=== PATIENT | male | born 1960 | race Caucasian/White ===

== ENCOUNTER 2021-08-26 15:38 | Inpatient (IN) | payer MEDICARE, MEDICAID ==
[~2021-08-26] VITALS: Ht 177.8 cm; Wt 94.7 kg
[2021-08-26 16:25] LABS: Basophils # (auto) 0 10 ^3/uL (0-0.2); Basophils % (auto) 0.4 % (0.0-2.0); Eosinophils # (auto) 0 10 ^3/uL (0-0.8); Eosinophils % (auto) 0.1 % (0.0-7.0); Hematocrit 39.2 % (41.0-53.0); Hemoglobin 13.3 g/dL (13.5-17.5); Lymphocytes # (auto) 0.8 10 ^3/uL (0.4-5.4); Lymphocytes % (auto) 6.1 % (10.0-50.0); Mean Corpuscular Hemoglobin 33.4 pg (28.0-32.0); Mean Corpuscular Volume 98.2 fL (80.0-100.0); Monocytes # (auto) 1.4 10 ^3/uL (0-1.3); Monocytes % (auto) 11.1 % (0.0-12.0); Neutrophils # (auto) 10.6 10 ^3/uL (1.6-8.6); Neutrophils % (auto) 82.3 % (37.0-80.0); Red Blood Cells 3.99 10^6/uL (4.5-5.90); Red Cell Distribution Width 15.3 % (11.8-14.3); White Blood Cell 12.9 10^3/uL (4.4-10.8)
[2021-08-26 16:44] LABS: Albumin 2.4 g/dL (3.4-5.0); Potassium 3.1 mmol/L (3.5-5.1)
[2021-08-26 16:47] LABS: BUN/Creatinine Ratio 8.1; Bilirubin, Total 0.9 mg/dL (0.2-1.0); Total Protein 6.8 g/dL (6.4-8.2)
[2021-08-26] MEDS ORDERED: SODIUM CHLORIDE 0.9% 500 ML IV ONE (18:00)
[2021-08-26] MEDS ORDERED: methylPREDNISolone SOD SUCC 125 MG/2 ML VL IV ONE (18:00)
[2021-08-26] MEDS ORDERED: POTASSIUM CHL 20MEQ/100ML 100 ML IV ONE (18:15)
[2021-08-26] MEDS ORDERED: hydrALAZINE HCL 20 MG/ML VL IV PRN (18:30)
[2021-08-26] MEDS ORDERED: MORPHINE SULFATE INJECTION 2 MG/ML SYRG IV PRN (18:30)
[2021-08-26] MEDS ORDERED: ONDANSETRON HCL 4 MG/2 ML VIAL IV PRN (18:30)
[2021-08-26] MEDS ORDERED: NITROGLYCERIN 0.4 MG SL TAB SL PRN (18:30)
[2021-08-26] MEDS ORDERED: ACETAMINOPHEN 325 MG TAB PO PRN (18:45)
[2021-08-26] MEDS: BUDESONIDE (INHALATION) 0.5 MG/2 ML NEB NEB SCH (19:25)
[2021-08-26] MEDS: chlordiazePOXIDE HCL 25 MG CAP PO SCH (20:32)
[2021-08-26 20:53] LABS: BUN/Creatinine Ratio 8.4; Calcium 6.6 mg/dL (8.5-10.1); Potassium 3.3 mmol/L (3.5-5.1)
[2021-08-26 21:44] VITALS: BP 117/60
[2021-08-27 00:30] VITALS: BP 102/62
[2021-08-27] MEDS: PANTOPRAZOLE 40 MG/10 ML VIAL INJ IV SCH ×3 (00:47→21:31)
[2021-08-27] MEDS: PIPERACILLIN-TAZOB 2.25GM 50 ML IV SCH ×4 (00:48→21:31)
[2021-08-27] MEDS: LORazepam 0.5 MG TAB PO PRN (02:22)
[2021-08-27 05:00] VITALS: BP 128/61
[2021-08-27 05:46] LABS: Basophils # (auto) 0 10 ^3/uL (0-0.2); Eosinophils # (auto) 0 10 ^3/uL (0-0.8); Hematocrit 36.3 % (41.0-53.0); Hemoglobin 12.6 g/dL (13.5-17.5); Lymphocytes # (auto) 0.3 10 ^3/uL (0.4-5.4); Lymphocytes % (auto) 4.1 % (10.0-50.0); Mean Corpuscular Hemoglobin 34.2 pg (28.0-32.0); Mean Corpuscular Hgb Conc. 34.7 g/dL (32.0-36.0); Mean Corpuscular Volume 98.7 fL (80.0-100.0); Monocytes # (auto) 0.2 10 ^3/uL (0-1.3); Monocytes % (auto) 2.5 % (0.0-12.0); Neutrophils # (auto) 7.9 10 ^3/uL (1.6-8.6); Neutrophils % (auto) 93.4 % (37.0-80.0); Red Blood Cells 3.68 10^6/uL (4.5-5.90); Red Cell Distribution Width 15.6 % (11.8-14.3); White Blood Cell 8.5 10^3/uL (4.4-10.8)
[2021-08-27] MEDS: chlordiazePOXIDE HCL 25 MG CAP PO SCH ×3 (05:57→21:32)
[2021-08-27 06:04] LABS: INR 1.04 (0.9-1.15)
[2021-08-27 06:16] LABS: Potassium 3.6 mmol/L (3.5-5.1)
[2021-08-27 06:25] LABS: Albumin 2.2 g/dL (3.4-5.0); BUN/Creatinine Ratio 9.8; Bilirubin, Total 0.9 mg/dL (0.2-1.0); Calcium 6.4 mg/dL (8.5-10.1); Total Protein 6.3 g/dL (6.4-8.2)
[2021-08-27 09:00] VITALS: BP 100/47
[2021-08-27] MEDS: FOLIC ACID 1 MG in D5W 5% 50 ML INJ SCH (09:40)
[2021-08-27] MEDS: NICOTINE 7MG/24HR TOPICAL PATCH TD SCH (10:00)
[2021-08-27] MEDS: BUDESONIDE (INHALATION) 0.5 MG/2 ML NEB NEB SCH ×2 (11:52→23:07)
[2021-08-27] MEDS: SUCRALFATE 1 GM/10 ML ORAL SUSP PO SCH ×3 (11:59→21:31)
[2021-08-27] MEDS: SODIUM CHLORIDE 0.9% 1,000 ML IV SCH ×2 (12:30→21:31)
[2021-08-27 13:00] VITALS: BP 97/58
[2021-08-27 16:38] VITALS: BP 99/61
[2021-08-27 22:00] VITALS: BP 91/51
[2021-08-27] MEDS: ALBUTEROL SULF 2.5 MG/0.5ML(0.5%) NEB SOLN NEB PRN (23:08)
[2021-08-27] MEDS: IPRATROPIUM BROM 0.5 MG/2.5ML INH SOL NEB PRN (23:08)
[2021-08-28] MEDS: SODIUM CHLORIDE 0.9% 1,000 ML IV SCH (04:48)
[2021-08-28 05:00] VITALS: BP 92/50
[2021-08-28] MEDS: PIPERACILLIN-TAZOB 2.25GM 50 ML IV SCH ×3 (06:13→22:35)
[2021-08-28] MEDS: SUCRALFATE 1 GM/10 ML ORAL SUSP PO SCH ×4 (06:14→22:35)
[2021-08-28] MEDS: ALBUTEROL SULF 2.5 MG/0.5ML(0.5%) NEB SOLN NEB PRN ×2 (07:01→21:54)
[2021-08-28] MEDS: IPRATROPIUM BROM 0.5 MG/2.5ML INH SOL NEB PRN (07:01)
[2021-08-28] MEDS: BUDESONIDE (INHALATION) 0.5 MG/2 ML NEB NEB SCH ×2 (07:01→21:54)
[2021-08-28 08:17] LABS: Basophils # (auto) 0 10 ^3/uL (0-0.2); Eosinophils # (auto) 0.1 10 ^3/uL (0-0.8); Lymphocytes # (auto) 1.5 10 ^3/uL (0.4-5.4); Lymphocytes % (auto) 17.7 % (10.0-50.0); Monocytes # (auto) 0.8 10 ^3/uL (0-1.3); White Blood Cell 8.4 10^3/uL (4.4-10.8)
[2021-08-28 08:21] LABS: Basophils % (auto) 0.2 % (0.0-2.0); Hematocrit 33.6 % (41.0-53.0); Hemoglobin 11.7 g/dL (13.5-17.5); Mean Corpuscular Hemoglobin 34.9 pg (28.0-32.0); Mean Corpuscular Hgb Conc. 34.8 g/dL (32.0-36.0); Mean Corpuscular Volume 100.4 fL (80.0-100.0); Monocytes % (auto) 9.7 % (0.0-12.0); Neutrophils % (auto) 71.4 % (37.0-80.0); Red Blood Cells 3.34 10^6/uL (4.5-5.90); Red Cell Distribution Width 15.4 % (11.8-14.3)
[2021-08-28 09:00] VITALS: BP 97/53
[2021-08-28] MEDS: chlordiazePOXIDE HCL 25 MG CAP PO SCH ×2 (09:47→22:35)
[2021-08-28] MEDS: PANTOPRAZOLE 40 MG/10 ML VIAL INJ IV SCH ×2 (09:48→22:34)
[2021-08-28] MEDS: THIAMINE 100mg/ml INJ (200mg/2ml VIAL) IV SCH (09:48)
[2021-08-28] MEDS: FOLIC ACID 1 MG in D5W 5% 50 ML INJ SCH (09:49)
[2021-08-28] MEDS: NICOTINE 7MG/24HR TOPICAL PATCH TD SCH (09:51)
[2021-08-28] MEDS: DOPamine 1600MCG/ML D5W 250 ML IV SCH (11:36)
[2021-08-28] MEDS: MIDODRINE HCL 10 MG TAB PO SCH ×2 (11:55→18:39)
[2021-08-28 12:56] VITALS: BP 68/51
[2021-08-28] MEDS: SODIUM BICARBONATE 50ML VIAL 50 ML in SOD CHL 0.45% 1,000 ML IV SCH ×2 (14:32→22:34)
[2021-08-28] MEDS: OCTREOTIDE ACETATE 100 MCG/ML VL SUBCUT SCH ×2 (14:32→22:36)
[2021-08-28 16:22] LABS: Urine Bacteria FEW /hpf (None Seen); Urine Blood 2+ /uL (Negative); Urine WBC 12 /hpf (0 - 3)
[2021-08-28 16:44] LABS: Amphetamine Screen, Urine NEGATIVE (NEGATIVE); Barbiturate Scree,Urine NEGATIVE (NEGATIVE); Benzodiazephine Screen, Urine POSITIVE (NEGATIVE); Cocaine Screen, Urine NEGATIVE (NEGATIVE); Opiate Scree,Urine NEGATIVE (NEGATIVE); Phencyclidine Screen, Urine NEGATIVE (NEGATIVE)
[2021-08-28 16:52] LABS: Cannabinoid Screen, Urine POSITIVE (NEGATIVE)
[2021-08-28 17:00] VITALS: BP 76/46
[2021-08-28 17:00] LABS: Alcohol, Urine < 3.0 mg/dL (0-10)
[2021-08-28 22:00] VITALS: BP 113/48
[2021-08-29 05:00] VITALS: BP 95/60
[2021-08-29] MEDS: MIDODRINE HCL 10 MG TAB PO SCH ×3 (06:25→17:33)
[2021-08-29] MEDS: PIPERACILLIN-TAZOB 2.25GM 50 ML IV SCH ×3 (06:25→22:28)
[2021-08-29] MEDS: SODIUM BICARBONATE 50ML VIAL 50 ML in SOD CHL 0.45% 1,000 ML IV SCH ×3 (06:25→20:24)
[2021-08-29] MEDS: OCTREOTIDE ACETATE 100 MCG/ML VL SUBCUT SCH ×3 (06:26→22:29)
[2021-08-29] MEDS: SUCRALFATE 1 GM/10 ML ORAL SUSP PO SCH ×4 (06:27→22:28)
[2021-08-29 09:00] VITALS: BP 90/56
[2021-08-29] MEDS: DOPamine 1600MCG/ML D5W 250 ML IV SCH (09:45)
[2021-08-29] MEDS: PANTOPRAZOLE 40 MG/10 ML VIAL INJ IV SCH ×2 (10:00→22:27)
[2021-08-29] MEDS: THIAMINE 100mg/ml INJ (200mg/2ml VIAL) IV SCH (10:00)
[2021-08-29] MEDS: chlordiazePOXIDE HCL 25 MG CAP PO SCH (10:00)
[2021-08-29] MEDS: NICOTINE 7MG/24HR TOPICAL PATCH TD SCH (10:01)
[2021-08-29] MEDS: FOLIC ACID 1 MG in D5W 5% 50 ML INJ SCH (10:26)
[2021-08-29 11:23] LABS: Albumin 1.9 g/dL (3.4-5.0); Calcium 6.4 mg/dL (8.5-10.1); Potassium 3.4 mmol/L (3.5-5.1)
[2021-08-29 11:28] LABS: BUN/Creatinine Ratio 10.4; Bilirubin, Total 0.5 mg/dL (0.2-1.0); Total Protein 5.7 g/dL (6.4-8.2)
[2021-08-29] MEDS: CALCIUM ACETATE 667 MG CAP PO SCH ×2 (12:00→17:33)
[2021-08-29 13:11] VITALS: BP 95/53
[2021-08-29] MEDS ORDERED: DOXYCYCLINE 100 MG TAB/CAP PO ONE (13:15)
[2021-08-29] MEDS ORDERED: FUROSEMIDE 100 MG/10ML VIAL IV ONE (19:30)
[2021-08-29 22:04] VITALS: BP 111/52
[2021-08-29] MEDS: DOXYCYCLINE 100 MG TAB/CAP PO SCH (22:28)
[2021-08-29] MEDS: ALBUTEROL SULF 2.5 MG/0.5ML(0.5%) NEB SOLN NEB PRN (23:07)
[2021-08-29] MEDS: IPRATROPIUM BROM 0.5 MG/2.5ML INH SOL NEB PRN (23:07)
[2021-08-29] MEDS: BUDESONIDE (INHALATION) 0.5 MG/2 ML NEB NEB SCH (23:07)
[2021-08-30 03:47] VITALS: BP 111/52
[2021-08-30 04:53] VITALS: BP 129/71
[2021-08-30 05:59] LABS: Basophils # (auto) 0 10 ^3/uL (0-0.2); Basophils % (auto) 0.3 % (0.0-2.0); Eosinophils # (auto) 0.3 10 ^3/uL (0-0.8); Eosinophils % (auto) 4.1 % (0.0-7.0); Lymphocytes # (auto) 0.9 10 ^3/uL (0.4-5.4); Lymphocytes % (auto) 12.9 % (10.0-50.0); Mean Corpuscular Hemoglobin 33.8 pg (28.0-32.0); Mean Corpuscular Hgb Conc. 34.4 g/dL (32.0-36.0); Mean Corpuscular Volume 98.2 fL (80.0-100.0); Monocytes # (auto) 0.7 10 ^3/uL (0-1.3); Monocytes % (auto) 9.1 % (0.0-12.0); Neutrophils # (auto) 5.4 10 ^3/uL (1.6-8.6); Neutrophils % (auto) 73.6 % (37.0-80.0); Red Blood Cells 3.56 10^6/uL (4.5-5.90); Red Cell Distribution Width 15.5 % (11.8-14.3); White Blood Cell 7.3 10^3/uL (4.4-10.8)
[2021-08-30 06:21] LABS: Potassium 3.2 mmol/L (3.5-5.1)
[2021-08-30] MEDS: SODIUM BICARBONATE 50ML VIAL 50 ML in SOD CHL 0.45% 1,000 ML IV SCH ×3 (06:23→23:40)
[2021-08-30 06:25] LABS: BUN/Creatinine Ratio 10.2; Calcium 6.7 mg/dL (8.5-10.1); Magnesium 2.3 mg/dL (1.6-2.6); Phosphorus 5.6 mg/dL (2.5-4.90)
[2021-08-30] MEDS: MIDODRINE HCL 10 MG TAB PO SCH ×3 (06:47→17:56)
[2021-08-30] MEDS: PIPERACILLIN-TAZOB 2.25GM 50 ML IV SCH ×3 (06:47→23:16)
[2021-08-30] MEDS: OCTREOTIDE ACETATE 100 MCG/ML VL SUBCUT SCH ×3 (06:48→22:00)
[2021-08-30] MEDS: SUCRALFATE 1 GM/10 ML ORAL SUSP PO SCH ×4 (06:48→23:15)
[2021-08-30] MEDS ORDERED: chlordiazePOXIDE HCL 25 MG CAP PO SCH (07:00)
[2021-08-30] MEDS: CALCIUM ACETATE 667 MG CAP PO SCH ×3 (08:30→17:56)
[2021-08-30 09:01] VITALS: BP 123/71
[2021-08-30] MEDS ORDERED: FUROSEMIDE 100 MG/10ML VIAL IV SCH (09:30)
[2021-08-30] MEDS: POTASSIUM CHL 20 Meq TABLET PO ONE ×2 (09:30→10:06)
[2021-08-30] MEDS: DOPamine 1600MCG/ML D5W 250 ML IV SCH (09:45)
[2021-08-30] MEDS: DOXYCYCLINE 100 MG TAB/CAP PO SCH ×2 (10:01→23:16)
[2021-08-30] MEDS: THIAMINE 100mg/ml INJ (200mg/2ml VIAL) IV SCH (10:01)
[2021-08-30] MEDS: FOLIC ACID 1 MG in D5W 5% 50 ML INJ SCH (10:01)
[2021-08-30] MEDS: PANTOPRAZOLE 40 MG/10 ML VIAL INJ IV SCH ×2 (10:01→23:16)
[2021-08-30] MEDS: NICOTINE 7MG/24HR TOPICAL PATCH TD SCH (10:02)
[2021-08-30] MEDS: IPRATROPIUM BROM 0.5 MG/2.5ML INH SOL NEB PRN (11:44)
[2021-08-30] MEDS: BUDESONIDE (INHALATION) 0.5 MG/2 ML NEB NEB SCH (11:44)
[2021-08-30] MEDS: ALBUTEROL SULF 2.5 MG/0.5ML(0.5%) NEB SOLN NEB PRN (11:44)
[2021-08-30] MEDS: MORPHINE SULFATE INJECTION 2 MG/ML SYRG IV PRN ×2 (11:58→23:23)
[2021-08-30] MEDS: FUROSEMIDE 100 MG/10ML VIAL IV SCH ×2 (12:33→23:24)
[2021-08-30 13:00] VITALS: BP 118/68
[2021-08-30 17:00] VITALS: BP 120/59
[2021-08-30 22:00] VITALS: BP 115/74
[2021-08-30] MEDS: LORazepam 0.5 MG TAB PO PRN (23:23)
[2021-08-31] VITALS (7 sets, daily range): BP systolic 126–152; BP diastolic 65–86
[2021-08-31] MEDS: ALBUTEROL SULF 2.5 MG/0.5ML(0.5%) NEB SOLN NEB PRN ×2 (01:08→18:16)
[2021-08-31] MEDS: BUDESONIDE (INHALATION) 0.5 MG/2 ML NEB NEB SCH ×3 (01:08→18:16)
[2021-08-31] MEDS: IPRATROPIUM BROM 0.5 MG/2.5ML INH SOL NEB PRN (01:08)
[2021-08-31] MEDS: OCTREOTIDE ACETATE 100 MCG/ML VL SUBCUT SCH ×3 (05:25→21:31)
[2021-08-31] MEDS: PIPERACILLIN-TAZOB 2.25GM 50 ML IV SCH ×3 (05:25→21:30)
[2021-08-31] MEDS: SUCRALFATE 1 GM/10 ML ORAL SUSP PO SCH ×4 (05:25→21:30)
[2021-08-31] MEDS: MORPHINE SULFATE INJECTION 2 MG/ML SYRG IV PRN ×3 (05:26→21:32)
[2021-08-31] MEDS: MIDODRINE HCL 10 MG TAB PO SCH ×3 (05:26→17:35)
[2021-08-31 06:25] LABS: BUN/Creatinine Ratio 9.8; Calcium 7.6 mg/dL (8.5-10.1); Potassium 3.3 mmol/L (3.5-5.1)
[2021-08-31 08:06] LABS: Immunoglobulin G, Serum 604 mg/dL (603-1613)
[2021-08-31] MEDS: CALCIUM ACETATE 667 MG CAP PO SCH ×3 (08:21→17:35)
[2021-08-31] MEDS: DOPamine 1600MCG/ML D5W 250 ML IV SCH ×2 (09:45→21:33)
[2021-08-31] MEDS: DOXYCYCLINE 100 MG TAB/CAP PO SCH ×2 (10:30→21:30)
[2021-08-31] MEDS: FOLIC ACID 1 MG in D5W 5% 50 ML INJ SCH (10:30)
[2021-08-31] MEDS: PANTOPRAZOLE 40 MG/10 ML VIAL INJ IV SCH ×2 (10:30→21:29)
[2021-08-31] MEDS: THIAMINE 100mg/ml INJ (200mg/2ml VIAL) IV SCH (10:30)
[2021-08-31] MEDS: NICOTINE 7MG/24HR TOPICAL PATCH TD SCH (10:30)
[2021-08-31] MEDS: SPIRONOLACTONE 25 MG TAB PO SCH ×2 (11:44→17:35)
[2021-08-31] MEDS: FUROSEMIDE 100 MG/10ML VIAL IV SCH (13:00)
[2021-08-31] MEDS: SODIUM BICARBONATE 50ML VIAL 50 ML in SOD CHL 0.45% 1,000 ML IV SCH ×2 (13:54→16:30)
[2021-09-01] VITALS (7 sets, daily range): BP systolic 131–163; BP diastolic 64–84
[2021-09-01] MEDS: FUROSEMIDE 100 MG/10ML VIAL IV SCH ×2 (00:01→12:14)
[2021-09-01] MEDS ORDERED: SODIUM BICARBONATE 8.4 % INJ 50ML VIAL IV ONE (01:22)
[2021-09-01] MEDS: SODIUM BICARBONATE 50ML VIAL 50 ML in SOD CHL 0.45% 1,000 ML IV SCH (01:31)
[2021-09-01] MEDS: LORazepam 0.5 MG TAB PO PRN ×2 (01:35→23:35)
[2021-09-01] MEDS: MIDODRINE HCL 10 MG TAB PO SCH ×3 (05:47→17:39)
[2021-09-01] MEDS: SPIRONOLACTONE 25 MG TAB PO SCH ×2 (05:47→17:38)
[2021-09-01] MEDS: PIPERACILLIN-TAZOB 2.25GM 50 ML IV SCH ×3 (05:47→22:00)
[2021-09-01 05:51] LABS: Basophils # (auto) 0 10 ^3/uL (0-0.2); Basophils % (auto) 0.5 % (0.0-2.0); Eosinophils # (auto) 0.3 10 ^3/uL (0-0.8); Lymphocytes # (auto) 0.7 10 ^3/uL (0.4-5.4); Lymphocytes % (auto) 9.3 % (10.0-50.0); Neutrophils # (auto) 5.3 10 ^3/uL (1.6-8.6)
[2021-09-01 05:54] LABS: Hematocrit 37.5 % (41.0-53.0); Hemoglobin 13.1 g/dL (13.5-17.5); Mean Corpuscular Hemoglobin 34.3 pg (28.0-32.0); Mean Corpuscular Hgb Conc. 34.8 g/dL (32.0-36.0); Mean Corpuscular Volume 98.7 fL (80.0-100.0); Monocytes # (auto) 0.9 10 ^3/uL (0-1.3); Monocytes % (auto) 11.9 % (0.0-12.0); Neutrophils % (auto) 74.3 % (37.0-80.0); Red Cell Distribution Width 15.2 % (11.8-14.3); White Blood Cell 7.2 10^3/uL (4.4-10.8)
[2021-09-01] MEDS: MORPHINE SULFATE INJECTION 2 MG/ML SYRG IV PRN ×4 (06:07→22:40)
[2021-09-01 06:17] LABS: BUN/Creatinine Ratio 10.2; Calcium 8.1 mg/dL (8.5-10.1); Potassium 3.5 mmol/L (3.5-5.1)
[2021-09-01] MEDS: DIPHENOXYLATE W/ATROPINE 2.5 MG TAB PO PRN (06:23)
[2021-09-01] MEDS: ALBUTEROL SULF 2.5 MG/0.5ML(0.5%) NEB SOLN NEB PRN ×2 (06:27→19:11)
[2021-09-01] MEDS: BUDESONIDE (INHALATION) 0.5 MG/2 ML NEB NEB SCH ×2 (06:29→19:11)
[2021-09-01] MEDS: SUCRALFATE 1 GM/10 ML ORAL SUSP PO SCH ×4 (07:06→22:00)
[2021-09-01] MEDS: OCTREOTIDE ACETATE 100 MCG/ML VL SUBCUT SCH ×3 (07:15→22:00)
[2021-09-01] MEDS: CALCIUM ACETATE 667 MG CAP PO SCH ×3 (07:53→17:38)
[2021-09-01] MEDS: THIAMINE 100mg/ml INJ (200mg/2ml VIAL) IV SCH (10:07)
[2021-09-01] MEDS: DOXYCYCLINE 100 MG TAB/CAP PO SCH ×2 (10:08→22:00)
[2021-09-01] MEDS: PANTOPRAZOLE 40 MG/10 ML VIAL INJ IV SCH ×2 (10:08→22:00)
[2021-09-01] MEDS: NICOTINE 7MG/24HR TOPICAL PATCH TD SCH (10:09)
[2021-09-01] MEDS: FOLIC ACID 1 MG in D5W 5% 50 ML INJ SCH (11:28)
[2021-09-01] MEDS: FUROSEMIDE INJECTION 100 MG in SODIUM CHL 0.9% 100 ML IV SCH ×2 (14:24→18:50)
[2021-09-01] MEDS: SODIUM BICARBONATE 50ML VIAL 75 ML in SOD CHL 0.45% 1,000 ML IV SCH ×2 (16:02→21:28)
[2021-09-01] MEDS: IPRATROPIUM BROM 0.5 MG/2.5ML INH SOL NEB PRN (19:11)
[2021-09-02] MEDS: FUROSEMIDE INJECTION 100 MG in SODIUM CHL 0.9% 100 ML IV SCH ×6 (01:31→23:00)
[2021-09-02] MEDS: DIPHENOXYLATE W/ATROPINE 2.5 MG TAB PO PRN (04:47)
[2021-09-02] MEDS: MORPHINE SULFATE INJECTION 2 MG/ML SYRG IV PRN ×4 (04:48→18:43)
[2021-09-02 05:00] VITALS: BP 151/102
[2021-09-02] MEDS: OCTREOTIDE ACETATE 100 MCG/ML VL SUBCUT SCH ×3 (06:00→22:00)
[2021-09-02 06:07] LABS: Basophils # (auto) 0 10 ^3/uL (0-0.2); Basophils % (auto) 0.6 % (0.0-2.0); Hematocrit 38.8 % (41.0-53.0); Hemoglobin 13.2 g/dL (13.5-17.5); Lymphocytes # (auto) 0.6 10 ^3/uL (0.4-5.4); Lymphocytes % (auto) 9.6 % (10.0-50.0); Monocytes # (auto) 0.9 10 ^3/uL (0-1.3)
[2021-09-02 06:10] LABS: Eosinophils # (auto) 0.3 10 ^3/uL (0-0.8); Mean Corpuscular Hemoglobin 34.7 pg (28.0-32.0); Mean Corpuscular Volume 102.1 fL (80.0-100.0); Monocytes % (auto) 13.5 % (0.0-12.0); Neutrophils # (auto) 4.6 10 ^3/uL (1.6-8.6); Neutrophils % (auto) 71.3 % (37.0-80.0); Red Blood Cells 3.79 10^6/uL (4.5-5.90); Red Cell Distribution Width 15.5 % (11.8-14.3); White Blood Cell 6.5 10^3/uL (4.4-10.8)
[2021-09-02 06:24] LABS: Potassium 3.5 mmol/L (3.5-5.1)
[2021-09-02 06:30] LABS: BUN/Creatinine Ratio 9.5; Calcium 8.2 mg/dL (8.5-10.1)
[2021-09-02] MEDS: MIDODRINE HCL 10 MG TAB PO SCH ×3 (06:35→17:58)
[2021-09-02] MEDS: SPIRONOLACTONE 25 MG TAB PO SCH ×2 (06:35→17:58)
[2021-09-02] MEDS: PIPERACILLIN-TAZOB 2.25GM 50 ML IV SCH ×3 (06:35→22:10)
[2021-09-02] MEDS: SUCRALFATE 1 GM/10 ML ORAL SUSP PO SCH ×4 (06:52→22:10)
[2021-09-02] MEDS: SODIUM BICARBONATE 50ML VIAL 75 ML in SOD CHL 0.45% 1,000 ML IV SCH ×2 (06:52→15:22)
[2021-09-02] MEDS: BUDESONIDE (INHALATION) 0.5 MG/2 ML NEB NEB SCH ×2 (07:03→19:15)
[2021-09-02] MEDS: ALBUTEROL SULF 2.5 MG/0.5ML(0.5%) NEB SOLN NEB PRN (07:03)
[2021-09-02] MEDS: IPRATROPIUM BROM 0.5 MG/2.5ML INH SOL NEB PRN (07:03)
[2021-09-02 08:32] LABS: INR 1.03 (0.9-1.15); Partial Thromboplastin Time 35.2 sec (23.6-33.0)
[2021-09-02 09:00] VITALS: BP 142/76
[2021-09-02] MEDS: THIAMINE 100mg/ml INJ (200mg/2ml VIAL) IV SCH (10:00)
[2021-09-02] MEDS: CALCIUM ACETATE 667 MG CAP PO SCH ×3 (10:16→17:58)
[2021-09-02] MEDS: DOPamine 1600MCG/ML D5W 250 ML IV SCH (10:18)
[2021-09-02] MEDS: DOXYCYCLINE 100 MG TAB/CAP PO SCH ×2 (10:21→22:10)
[2021-09-02] MEDS: PANTOPRAZOLE 40 MG/10 ML VIAL INJ IV SCH ×2 (10:21→22:10)
[2021-09-02] MEDS: NICOTINE 7MG/24HR TOPICAL PATCH TD SCH (10:23)
[2021-09-02] MEDS: FOLIC ACID 1 MG in D5W 5% 50 ML INJ SCH (10:26)
[2021-09-02 12:19] LABS: Hepatitis A Ab IgM Negative
[2021-09-02 12:36] VITALS: BP 116/86
[2021-09-02 13:45] LABS: Hepatitis B Core IgM Negative
[2021-09-02 14:10] LABS: Hepatitis C Antibody Negative (Negative)
[2021-09-02 16:23] LABS: BUN/Creatinine Ratio 9.6; Calcium 8.6 mg/dL (8.5-10.1); Potassium 3.4 mmol/L (3.5-5.1)
[2021-09-02 16:34] VITALS: BP 132/74
[2021-09-02 21:59] VITALS: BP 127/78
[2021-09-02] MEDS: LORazepam 0.5 MG TAB PO PRN (22:50)
[2021-09-03] MEDS: SODIUM BICARBONATE 50ML VIAL 75 ML in SOD CHL 0.45% 1,000 ML IV SCH ×3 (00:22→18:11)
[2021-09-03 05:00] VITALS: BP 119/76
[2021-09-03] MEDS: FUROSEMIDE INJECTION 100 MG in SODIUM CHL 0.9% 100 ML IV SCH ×4 (05:15→20:30)
[2021-09-03] MEDS: MORPHINE SULFATE INJECTION 2 MG/ML SYRG IV PRN ×3 (05:28→21:20)
[2021-09-03] MEDS: MIDODRINE HCL 10 MG TAB PO SCH ×3 (06:15→18:00)
[2021-09-03] MEDS: SPIRONOLACTONE 25 MG TAB PO SCH ×2 (06:15→18:00)
[2021-09-03] MEDS: OCTREOTIDE ACETATE 100 MCG/ML VL SUBCUT SCH ×3 (06:15→22:15)
[2021-09-03] MEDS: PIPERACILLIN-TAZOB 2.25GM 50 ML IV SCH ×3 (06:15→22:15)
[2021-09-03 06:29] LABS: Calcium 8.4 mg/dL (8.5-10.1)
[2021-09-03 06:31] LABS: BUN/Creatinine Ratio 9.4
[2021-09-03] MEDS: SUCRALFATE 1 GM/10 ML ORAL SUSP PO SCH ×4 (07:06→22:15)
[2021-09-03] MEDS: ALBUTEROL SULF 2.5 MG/0.5ML(0.5%) NEB SOLN NEB PRN (08:01)
[2021-09-03] MEDS: IPRATROPIUM BROM 0.5 MG/2.5ML INH SOL NEB PRN (08:03)
[2021-09-03] MEDS: BUDESONIDE (INHALATION) 0.5 MG/2 ML NEB NEB SCH ×2 (08:03→21:42)
[2021-09-03] MEDS: CALCIUM ACETATE 667 MG CAP PO SCH ×3 (08:45→18:00)
[2021-09-03 09:00] VITALS: BP 119/65
[2021-09-03] MEDS: DOPamine 1600MCG/ML D5W 250 ML IV SCH (09:45)
[2021-09-03] MEDS: THIAMINE 100mg/ml INJ (200mg/2ml VIAL) IV SCH (10:00)
[2021-09-03] MEDS: NICOTINE 7MG/24HR TOPICAL PATCH TD SCH (10:00)
[2021-09-03] MEDS: DOXYCYCLINE 100 MG TAB/CAP PO SCH ×2 (10:00→22:15)
[2021-09-03] MEDS: PANTOPRAZOLE 40 MG/10 ML VIAL INJ IV SCH ×2 (10:00→22:15)
[2021-09-03] MEDS: FOLIC ACID 1 MG in D5W 5% 50 ML INJ SCH (10:00)
[2021-09-03 13:00] VITALS: BP 124/78
[2021-09-03] MEDS ORDERED: ASPI-498 PO (15:05)
[2021-09-03] MEDS ORDERED: CHOL20002 PO (15:05)
[2021-09-03] MEDS ORDERED: TEMA30CA PO (15:05)
[2021-09-03] MEDS ORDERED: LISI20TA28 PO (15:05)
[2021-09-03] MEDS ORDERED: ROSU1TAB14 PO (15:05)
[2021-09-03] MEDS ORDERED: MULTTAB99 PO (15:06)
[2021-09-03 16:47] VITALS: BP 110/70
[2021-09-03 22:00] VITALS: BP 115/74
[2021-09-03] MEDS: LORazepam 0.5 MG TAB PO PRN (22:39)
[2021-09-04] MEDS: FUROSEMIDE INJECTION 100 MG in SODIUM CHL 0.9% 100 ML IV SCH ×5 (01:45→20:41)
[2021-09-04] MEDS: SODIUM BICARBONATE 50ML VIAL 75 ML in SOD CHL 0.45% 1,000 ML IV SCH (02:36)
[2021-09-04 05:00] VITALS: BP 153/74
[2021-09-04 06:00] LABS: BUN/Creatinine Ratio 9.2; Calcium 8.3 mg/dL (8.5-10.1); Potassium 3.1 mmol/L (3.5-5.1)
[2021-09-04] MEDS: PIPERACILLIN-TAZOB 2.25GM 50 ML IV SCH ×3 (06:52→21:54)
[2021-09-04] MEDS: SPIRONOLACTONE 25 MG TAB PO SCH ×2 (06:52→16:42)
[2021-09-04] MEDS: SUCRALFATE 1 GM/10 ML ORAL SUSP PO SCH ×4 (06:53→21:54)
[2021-09-04] MEDS: OCTREOTIDE ACETATE 100 MCG/ML VL SUBCUT SCH ×3 (06:53→21:55)
[2021-09-04] MEDS: MIDODRINE HCL 10 MG TAB PO SCH ×3 (06:53→16:42)
[2021-09-04] MEDS ORDERED: guaiFENesin-DM 100/10mg/5ml SYR PO PRN (07:45)
[2021-09-04] MEDS: CALCIUM ACETATE 667 MG CAP PO SCH ×3 (08:02→16:41)
[2021-09-04] MEDS ORDERED: POTASSIUM CHL 20 Meq TABLET PO ONE (08:30)
[2021-09-04 09:00] VITALS: BP 142/82
[2021-09-04] MEDS: PANTOPRAZOLE 40 MG/10 ML VIAL INJ IV SCH ×2 (09:34→21:54)
[2021-09-04] MEDS: THIAMINE 100mg/ml INJ (200mg/2ml VIAL) IV SCH (09:34)
[2021-09-04] MEDS: DOXYCYCLINE 100 MG TAB/CAP PO SCH ×2 (09:34→21:54)
[2021-09-04] MEDS: NICOTINE 7MG/24HR TOPICAL PATCH TD SCH (09:35)
[2021-09-04 09:37] LABS: Albumin 1.7 g/dL (3.4-5.0); Bilirubin, Direct 0.1 mg/dL (0-0.2)
[2021-09-04 09:39] LABS: Bilirubin, Total 0.4 mg/dL (0.2-1.0); Total Protein 5.8 g/dL (6.4-8.2)
[2021-09-04] MEDS: MORPHINE SULFATE INJECTION 2 MG/ML SYRG IV PRN ×2 (09:40→16:41)
[2021-09-04] MEDS: DOPamine 1600MCG/ML D5W 250 ML IV SCH (09:54)
[2021-09-04] MEDS: OPTISON 3ml Vial for INJ IV ONE ×2 (10:19→15:00)
[2021-09-04] MEDS: FOLIC ACID 1 MG in D5W 5% 50 ML INJ SCH (10:55)
[2021-09-04 13:00] VITALS: BP 102/61
[2021-09-04 16:14] VITALS: BP 123/64
[2021-09-04] MEDS: BUDESONIDE (INHALATION) 0.5 MG/2 ML NEB NEB SCH ×2 (16:18→20:05)
[2021-09-04] MEDS: IPRATROPIUM BROM 0.5 MG/2.5ML INH SOL NEB PRN ×2 (16:18→20:05)
[2021-09-04] MEDS: ALBUTEROL SULF 2.5 MG/0.5ML(0.5%) NEB SOLN NEB PRN ×2 (16:18→20:05)
[2021-09-04] MEDS: LORazepam 0.5 MG TAB PO PRN ×2 (20:05→21:56)
[2021-09-04] MEDS ORDERED: FUROSEMIDE INJECTION 10 ML ONE (20:08)
[2021-09-04 21:00] VITALS: BP 148/76
[2021-09-05 01:33] VITALS: BP 148/76
[2021-09-05] MEDS ORDERED: FUROSEMIDE INJECTION 10 ML ONE (02:49)
[2021-09-05] MEDS: FUROSEMIDE INJECTION 100 MG in SODIUM CHL 0.9% 100 ML IV SCH ×3 (03:05→12:48)
[2021-09-05 05:00] VITALS: BP 121/76
[2021-09-05] MEDS: SPIRONOLACTONE 25 MG TAB PO SCH ×2 (05:34→16:46)
[2021-09-05] MEDS: PIPERACILLIN-TAZOB 2.25GM 50 ML IV SCH ×3 (05:34→21:16)
[2021-09-05] MEDS: MIDODRINE HCL 10 MG TAB PO SCH ×3 (05:35→16:46)
[2021-09-05] MEDS: OCTREOTIDE ACETATE 100 MCG/ML VL SUBCUT SCH ×2 (05:35→12:47)
[2021-09-05] MEDS: MORPHINE SULFATE INJECTION 2 MG/ML SYRG IV PRN ×3 (05:36→18:40)
[2021-09-05] MEDS: BUDESONIDE (INHALATION) 0.5 MG/2 ML NEB NEB SCH ×2 (06:47→19:10)
[2021-09-05] MEDS: ALBUTEROL SULF 2.5 MG/0.5ML(0.5%) NEB SOLN NEB PRN ×2 (06:47→19:10)
[2021-09-05 06:58] LABS: Potassium 3.2 mmol/L (3.5-5.1)
[2021-09-05 07:18] LABS: BUN/Creatinine Ratio 9.3; Calcium 8.9 mg/dL (8.5-10.1)
[2021-09-05] MEDS: CALCIUM ACETATE 667 MG CAP PO SCH ×3 (07:46→16:46)
[2021-09-05] MEDS: SUCRALFATE 1 GM/10 ML ORAL SUSP PO SCH ×4 (07:46→21:16)
[2021-09-05 08:00] VITALS: BP 145/67
[2021-09-05] MEDS: PANTOPRAZOLE 40 MG/10 ML VIAL INJ IV SCH ×2 (10:04→21:15)
[2021-09-05] MEDS: DOXYCYCLINE 100 MG TAB/CAP PO SCH (10:04)
[2021-09-05] MEDS: FOLIC ACID 1 MG in D5W 5% 50 ML INJ SCH (10:05)
[2021-09-05] MEDS: NICOTINE 7MG/24HR TOPICAL PATCH TD SCH (10:05)
[2021-09-05] MEDS: THIAMINE 100mg/ml INJ (200mg/2ml VIAL) IV SCH (10:06)
[2021-09-05] MEDS: DOPamine 1600MCG/ML D5W 250 ML IV SCH (10:06)
[2021-09-05 12:00] VITALS: BP 141/69
[2021-09-05 16:00] VITALS: BP 153/73
[2021-09-05] MEDS: IPRATROPIUM BROM 0.5 MG/2.5ML INH SOL NEB PRN (19:10)
[2021-09-05 22:26] VITALS: BP 119/68
[2021-09-06] MEDS: MORPHINE SULFATE INJECTION 2 MG/ML SYRG IV PRN ×3 (03:10→17:29)
[2021-09-06 05:04] VITALS: BP 99/61
[2021-09-06] MEDS: BUDESONIDE (INHALATION) 0.5 MG/2 ML NEB NEB SCH ×2 (05:59→21:44)
[2021-09-06] MEDS: ALBUTEROL SULF 2.5 MG/0.5ML(0.5%) NEB SOLN NEB PRN ×2 (05:59→21:44)
[2021-09-06] MEDS: IPRATROPIUM BROM 0.5 MG/2.5ML INH SOL NEB PRN ×2 (05:59→21:44)
[2021-09-06] MEDS: SPIRONOLACTONE 25 MG TAB PO SCH ×2 (06:00→17:05)
[2021-09-06] MEDS: PIPERACILLIN-TAZOB 2.25GM 50 ML IV SCH ×3 (06:01→21:45)
[2021-09-06] MEDS: MIDODRINE HCL 10 MG TAB PO SCH ×3 (06:02→17:05)
[2021-09-06] MEDS: SUCRALFATE 1 GM/10 ML ORAL SUSP PO SCH ×4 (06:02→21:45)
[2021-09-06] MEDS: CALCIUM ACETATE 667 MG CAP PO SCH ×3 (07:55→17:05)
[2021-09-06 08:00] VITALS: BP 138/70
[2021-09-06] MEDS: PANTOPRAZOLE 40 MG/10 ML VIAL INJ IV SCH ×2 (08:44→21:44)
[2021-09-06] MEDS: NICOTINE 7MG/24HR TOPICAL PATCH TD SCH (08:44)
[2021-09-06 11:14] LABS: INR 1.11 (0.9-1.15); Partial Thromboplastin Time 38.3 sec (23.6-33.0)
[2021-09-06] MEDS ORDERED: LIDOCAINE 2%HCL (LOCAL ANESTH.) INJ 20ML MDV ONE (11:55)
[2021-09-06] MEDS ORDERED: MIDAZOLAM HCL 2MG/2ML 2ml VIAL (1mg/ml) ONE (12:21)
[2021-09-06] MEDS ORDERED: fentaNYL CITRATE 100 MCG/2 ML VL ONE (12:21)
[2021-09-06] MEDS ORDERED: HEPARIN SODIUM (PORCINE) 5000 UNITS/ML 1ML VIAL ONE (12:21)
[2021-09-06] MEDS ORDERED: levoFLOXacin 500 MG TAB PO ONE (15:30)
[2021-09-06 16:00] VITALS: BP 128/78
[2021-09-06 22:00] VITALS: BP 110/67
[2021-09-06] MEDS: LORazepam 0.5 MG TAB PO PRN (22:20)
[2021-09-07] MEDS: MORPHINE SULFATE INJECTION 2 MG/ML SYRG IV PRN ×2 (03:55→13:53)
[2021-09-07 05:00] VITALS: BP 111/54
[2021-09-07] MEDS: SPIRONOLACTONE 25 MG TAB PO SCH (06:00)
[2021-09-07] MEDS: PIPERACILLIN-TAZOB 2.25GM 50 ML IV SCH ×3 (06:07→21:43)
[2021-09-07] MEDS: MIDODRINE HCL 10 MG TAB PO SCH ×3 (06:07→20:45)
[2021-09-07 06:36] LABS: BUN/Creatinine Ratio 8.6; Calcium 8.6 mg/dL (8.5-10.1)
[2021-09-07] MEDS: SUCRALFATE 1 GM/10 ML ORAL SUSP PO SCH ×4 (07:54→21:43)
[2021-09-07] MEDS: CALCIUM ACETATE 667 MG CAP PO SCH ×3 (07:54→18:00)
[2021-09-07 09:00] VITALS: BP 128/71
[2021-09-07] MEDS ORDERED: POTASSIUM CHL 20 Meq TABLET PO ONE (09:15)
[2021-09-07] MEDS: levoFLOXacin 250 MG TAB PO SCH (09:19)
[2021-09-07] MEDS: PANTOPRAZOLE 40 MG/10 ML VIAL INJ IV SCH ×2 (09:20→21:43)
[2021-09-07] MEDS: NICOTINE 7MG/24HR TOPICAL PATCH TD SCH (09:28)
[2021-09-07] MEDS: BUDESONIDE (INHALATION) 0.5 MG/2 ML NEB NEB SCH ×2 (10:37→21:50)
[2021-09-07] MEDS ORDERED: ALBUMIN 25% 100 ML IV PRN (10:45)
[2021-09-07] MEDS ORDERED: SODIUM CHL 0.9% 1000 ML BAG XX ONE (10:45)
[2021-09-07 13:00] VITALS: BP 107/68
[2021-09-07] MEDS: POTASSIUM CHL 20MEQ/100ML 100 ML IV SCH ×2 (13:53→16:00)
[2021-09-07 17:00] VITALS: BP 122/69
[2021-09-07] MEDS ORDERED: EPOETIN ALFA-EPBX 10,000 UNIT/1ML VIAL SC ONE ×2 (21:00)
[2021-09-07] MEDS: LORazepam 0.5 MG TAB PO PRN (21:44)
[2021-09-07] MEDS: ALBUTEROL SULF 2.5 MG/0.5ML(0.5%) NEB SOLN NEB PRN (21:50)
[2021-09-07] MEDS: IPRATROPIUM BROM 0.5 MG/2.5ML INH SOL NEB PRN (21:50)
[2021-09-07 22:00] VITALS: BP 97/72
[2021-09-08 01:03] VITALS: BP 122/69
[2021-09-08 05:00] VITALS: BP 113/60
[2021-09-08] MEDS: PIPERACILLIN-TAZOB 2.25GM 50 ML IV SCH ×3 (05:11→21:47)
[2021-09-08] MEDS: MIDODRINE HCL 10 MG TAB PO SCH ×3 (05:11→17:11)
[2021-09-08] MEDS: MORPHINE SULFATE INJECTION 2 MG/ML SYRG IV PRN ×3 (05:17→14:31)
[2021-09-08 05:53] LABS: Basophils # (auto) 0.1 10 ^3/uL (0-0.2); Basophils % (auto) 0.6 % (0.0-2.0); Eosinophils # (auto) 0.2 10 ^3/uL (0-0.8); Eosinophils % (auto) 1.5 % (0.0-7.0); Hemoglobin 10.2 g/dL (13.5-17.5); Lymphocytes # (auto) 0.8 10 ^3/uL (0.4-5.4); Mean Corpuscular Hemoglobin 33.1 pg (28.0-32.0); Mean Corpuscular Hgb Conc. 33.8 g/dL (32.0-36.0); Mean Corpuscular Volume 97.9 fL (80.0-100.0); Monocytes # (auto) 0.7 10 ^3/uL (0-1.3); Monocytes % (auto) 5.8 % (0.0-12.0); Neutrophils # (auto) 9.7 10 ^3/uL (1.6-8.6); Neutrophils % (auto) 85.1 % (37.0-80.0); Red Blood Cells 3.07 10^6/uL (4.5-5.90); Red Cell Distribution Width 15.3 % (11.8-14.3); White Blood Cell 11.4 10^3/uL (4.4-10.8)
[2021-09-08 06:14] LABS: Folate (Folic Acid) 6.26 ng/mL (5.38-24)
[2021-09-08] MEDS: SUCRALFATE 1 GM/10 ML ORAL SUSP PO SCH ×4 (07:03→21:47)
[2021-09-08] MEDS: CALCIUM ACETATE 667 MG CAP PO SCH ×3 (08:16→17:11)
[2021-09-08 09:00] VITALS: BP 93/45
[2021-09-08 09:29] LABS: % Iron Saturation 35.6 % (20-55)
[2021-09-08] MEDS: PANTOPRAZOLE 40 MG/10 ML VIAL INJ IV SCH ×2 (09:37→21:46)
[2021-09-08] MEDS: NICOTINE 7MG/24HR TOPICAL PATCH TD SCH (09:41)
[2021-09-08] MEDS: BUDESONIDE (INHALATION) 0.5 MG/2 ML NEB NEB SCH ×2 (10:40→22:50)
[2021-09-08 12:45] VITALS: BP 115/58
[2021-09-08] MEDS: OCTREOTIDE ACETATE 100 MCG/ML VL SUBCUT SCH ×2 (15:22→21:48)
[2021-09-08 16:52] VITALS: BP 123/58
[2021-09-08] MEDS: LORazepam 0.5 MG TAB PO PRN (21:48)
[2021-09-08 22:00] VITALS: BP 116/58
[2021-09-08] MEDS: ALBUTEROL SULF 2.5 MG/0.5ML(0.5%) NEB SOLN NEB PRN (22:50)
[2021-09-09 05:00] VITALS: BP 144/69
[2021-09-09] MEDS: MIDODRINE HCL 10 MG TAB PO SCH ×3 (05:09→18:18)
[2021-09-09] MEDS: PIPERACILLIN-TAZOB 2.25GM 50 ML IV SCH ×3 (05:09→21:37)
[2021-09-09] MEDS: OCTREOTIDE ACETATE 100 MCG/ML VL SUBCUT SCH ×3 (05:10→21:50)
[2021-09-09] MEDS: MORPHINE SULFATE INJECTION 2 MG/ML SYRG IV PRN ×4 (05:30→22:38)
[2021-09-09 05:57] LABS: Hematocrit 31.8 % (41.0-53.0); Hemoglobin 10.7 g/dL (13.5-17.5)
[2021-09-09 06:17] LABS: Calcium 8.6 mg/dL (8.5-10.1); Potassium 3.1 mmol/L (3.5-5.1)
[2021-09-09 06:20] LABS: BUN/Creatinine Ratio 6.9; Bilirubin, Total 0.3 mg/dL (0.2-1.0); Phosphorus 4.1 mg/dL (2.5-4.90); Total Protein 6.5 g/dL (6.4-8.2)
[2021-09-09] MEDS ORDERED: SODIUM CHL 0.9% 1000 ML BAG XX ONE (07:00)
[2021-09-09] MEDS: BUDESONIDE (INHALATION) 0.5 MG/2 ML NEB NEB SCH ×2 (07:42→22:11)
[2021-09-09] MEDS: IPRATROPIUM BROM 0.5 MG/2.5ML INH SOL NEB PRN ×2 (07:42→22:11)
[2021-09-09] MEDS: ALBUTEROL SULF 2.5 MG/0.5ML(0.5%) NEB SOLN NEB PRN ×2 (07:42→22:11)
[2021-09-09] MEDS: CALCIUM ACETATE 667 MG CAP PO SCH ×3 (07:50→18:18)
[2021-09-09] MEDS: SUCRALFATE 1 GM/10 ML ORAL SUSP PO SCH ×4 (08:02→21:36)
[2021-09-09 08:51] VITALS: BP 129/69
[2021-09-09] MEDS: PANTOPRAZOLE 40 MG/10 ML VIAL INJ IV SCH ×2 (09:26→21:37)
[2021-09-09] MEDS: levoFLOXacin 250 MG TAB PO SCH (09:26)
[2021-09-09] MEDS: NICOTINE 7MG/24HR TOPICAL PATCH TD SCH (09:26)
[2021-09-09] MEDS ORDERED: POTASSIUM CHL 20 Meq TABLET PO ONE (12:00)
[2021-09-09 12:52] VITALS: BP 105/66
[2021-09-09 16:49] VITALS: BP 134/66
[2021-09-09] MEDS ORDERED: EPOETIN ALFA-EPBX 10,000 UNIT/1ML VIAL SC ONE (21:00)
[2021-09-09 21:28] VITALS: BP 155/94
[2021-09-09] MEDS: LORazepam 0.5 MG TAB PO PRN (23:25)
[2021-09-10 04:51] VITALS: BP 138/68
[2021-09-10] MEDS: MIDODRINE HCL 10 MG TAB PO SCH ×2 (06:05→11:17)
[2021-09-10] MEDS: PIPERACILLIN-TAZOB 2.25GM 50 ML IV SCH (06:05)
[2021-09-10] MEDS: OCTREOTIDE ACETATE 100 MCG/ML VL SUBCUT SCH (06:06)
[2021-09-10] MEDS: SUCRALFATE 1 GM/10 ML ORAL SUSP PO SCH ×2 (06:09→11:16)
[2021-09-10] MEDS: IPRATROPIUM BROM 0.5 MG/2.5ML INH SOL NEB PRN (07:08)
[2021-09-10] MEDS: ALBUTEROL SULF 2.5 MG/0.5ML(0.5%) NEB SOLN NEB PRN (07:08)
[2021-09-10] MEDS: MORPHINE SULFATE INJECTION 2 MG/ML SYRG IV PRN (07:08)
[2021-09-10] MEDS: BUDESONIDE (INHALATION) 0.5 MG/2 ML NEB NEB SCH (07:08)
[2021-09-10] MEDS: CALCIUM ACETATE 667 MG CAP PO SCH ×2 (08:25→11:17)
[2021-09-10] MEDS: PANTOPRAZOLE 40 MG/10 ML VIAL INJ IV SCH (08:26)
[2021-09-10] MEDS: NICOTINE 7MG/24HR TOPICAL PATCH TD SCH (08:26)
[2021-09-10 08:33] VITALS: BP 147/77
== END 2021-09-10 11:48 | DRG 871 ==
LOC: ER 15:38 → EDBD 15:38 → TELE 18:27 → TELE-WESTW 23:20
PROVIDERS: ADMIT Family Medicine; ATTEND Internal Medicine
PROC: 0JH63XZ Insertion of Tunneled Vascular Access Device into Chest Subcutaneous Tissue and Fascia, Percutaneous Approach (ICD-10-PCS; principal; 2021-09-06)
PROC: 02H633Z Insertion of Infusion Device into Right Atrium, Percutaneous Approach (ICD-10-PCS; 2021-09-06)
PROC: B518ZZA Fluoroscopy of Superior Vena Cava, Guidance (ICD-10-PCS; 2021-09-06)
PROC: B548ZZA Ultrasonography of Superior Vena Cava, Guidance (ICD-10-PCS; 2021-09-06)
DX: A41.9 Sepsis, unspecified organism (principal); J18.9 Pneumonia, unspecified organism; N17.0 Acute kidney failure with tubular necrosis; J96.01 Acute respiratory failure with hypoxia; N18.6 End stage renal disease; J44.1 Chronic obstructive pulmonary disease with (acute) exacerbation; E87.1 Hypo-osmolality and hyponatremia; F10.239 Alcohol dependence with withdrawal, unspecified; F17.213 Nicotine dependence, cigarettes, with withdrawal; E87.2 Acidosis; I12.0 Hypertensive chronic kidney disease with stage 5 chronic kidney disease or end stage renal disease; J98.11 Atelectasis; K92.1 Melena; Z20.822 Contact with and (suspected) exposure to COVID-19; E87.6 Hypokalemia; D64.9 Anemia, unspecified; K57.30 Diverticulosis of large intestine without perforation or abscess without bleeding; Y90.0 Blood alcohol level of less than 20 mg/100 ml; D69.6 Thrombocytopenia, unspecified; F10.229 Alcohol dependence with intoxication, unspecified; F41.9 Anxiety disorder, unspecified; I73.9 Peripheral vascular disease, unspecified; K40.90 Unilateral inguinal hernia, without obstruction or gangrene, not specified as recurrent; K44.9 Diaphragmatic hernia without obstruction or gangrene; K70.30 Alcoholic cirrhosis of liver without ascites; R31.9 Hematuria, unspecified; K80.20 Calculus of gallbladder without cholecystitis without obstruction; Z79.899 Other long term (current) drug therapy; Z82.49 Family history of ischemic heart disease and other diseases of the circulatory system; Z71.6 Tobacco abuse counseling; Z99.2 Dependence on renal dialysis
CPT/HCPCS: 36415; 36558; 71045; 71250; 74176; 76604; 76705; 76775; 76937; 76942; 77001; 80048; 80053; 80074; 80076; 80307; 80320; 81001; 82270; 82306; 82550; 82570; 82607; 82746; 82784; 83036; 83540; 83550; 83615; 83735; 83880; 83970; 84100; 84153; 84156; 84300; 84443; 85014; 85018; 85025; 85045; 85610; 85730; 86334; 86335; 86703; 87040; 87070; 87077; 87186; 87205; 87426; 87493; 90935; 93005; 93306; 94640; 96361; 96374; 97116; 97163; 97530; 99152; 99291; C9113; G0378; J1642; J2250; J2405; J2543; J3480; J7060; Q9956

== ENCOUNTER 2021-10-20 08:42 | Emergency (ER) | payer MEDICARE, MEDICAID ==
[~2021-10-20] VITALS: Ht 175.3 cm; Wt 81.6 kg
[~2021-10-20 08:42] MED LIST: ASPI-498 PO; CHOL20002 PO; LISI20TA28 PO; MULTTAB99 PO; ROSU1TAB14 PO; TEMA30CA PO
[2021-10-20] MEDS ORDERED: SODIUM CHLORIDE 0.9% 1,000 ML IV ONE (12:15)
[2021-10-20 12:53] LABS: Urine Bacteria MANY /hpf (None Seen); Urine Blood TRACE /uL (Negative); Urine Specific Gravity 1.012 (1.001-1.035); Urine WBC 429 /hpf (0 - 3)
[2021-10-20 13:58] LABS: Basophils # (auto) 0.1 10 ^3/uL (0-0.2); Basophils % (auto) 0.4 % (0.0-2.0); Eosinophils # (auto) 0.1 10 ^3/uL (0-0.8); Eosinophils % (auto) 0.4 % (0.0-7.0); Hematocrit 21.9 % (41.0-53.0); Hemoglobin 7.3 g/dL (13.5-17.5); Lymphocytes # (auto) 0.6 10 ^3/uL (0.4-5.4); Lymphocytes % (auto) 4.2 % (10.0-50.0); Mean Corpuscular Hemoglobin 30.3 pg (28.0-32.0); Mean Corpuscular Hgb Conc. 33.2 g/dL (32.0-36.0); Mean Corpuscular Volume 91.4 fL (80.0-100.0); Monocytes % (auto) 6.5 % (0.0-12.0); Neutrophils # (auto) 13.2 10 ^3/uL (1.6-8.6); Neutrophils % (auto) 88.5 % (37.0-80.0); Nucleated Red Blood Cells % 0.1 %; Red Blood Cells 2.39 10^6/uL (4.5-5.90); Red Cell Distribution Width 16.9 % (11.8-14.3); White Blood Cell 14.9 10^3/uL (4.4-10.8)
[2021-10-20 14:17] LABS: Albumin 2.7 g/dL (3.4-5.0); Calcium 8.8 mg/dL (8.5-10.1); Magnesium 2.3 mg/dL (1.6-2.6); Potassium 3.7 mmol/L (3.5-5.1)
[2021-10-20 14:23] LABS: BUN/Creatinine Ratio 16.8; Bilirubin, Total 0.6 mg/dL (0.2-1.0); Total Protein 6.9 g/dL (6.4-8.2)
[2021-10-20 15:23] VITALS: BP 99/42
[2021-10-20] MEDS ORDERED: cefTRIAXone 1GM/50ML D5W 50 ML IV ONE (16:15)
== END 2021-10-20 16:51 ==
LOC: ER 08:42 → EDBD 08:42 → ER 16:51
DX: Z49.01 Encounter for fitting and adjustment of extracorporeal dialysis catheter (principal); N39.0 Urinary tract infection, site not specified; I48.91 Unspecified atrial fibrillation; D64.9 Anemia, unspecified; E46 Unspecified protein-calorie malnutrition; N18.6 End stage renal disease; E78.5 Hyperlipidemia, unspecified; J44.9 Chronic obstructive pulmonary disease, unspecified; F17.210 Nicotine dependence, cigarettes, uncomplicated; Z68.26 Body mass index [BMI] 26.0-26.9, adult; Z79.82 Long term (current) use of aspirin; Z79.899 Other long term (current) drug therapy; Z90.89 Acquired absence of other organs
CPT/HCPCS: 36415; 71045; 80053; 81001; 83735; 83880; 84443; 84484; 85025; 85379; 93005; 96361; 96365; 99285; J0696; J7030

== ENCOUNTER 2022-01-26 07:45 | Inpatient (IN) | payer MEDICARE, MEDICAID ==
[~2022-01-26] VITALS: Ht 172.7 cm; Wt 72.9 kg
[2022-01-26] MEDS ORDERED: LORazepam 2MG/ML-1ML VIAL IV ONE ×4 (10:15→15:45)
[2022-01-26] MEDS ORDERED: SODIUM CHLORIDE 0.9% 500 ML IVB ONE (11:15)
[2022-01-26] MEDS ORDERED: SODIUM CHLORIDE 0.9% 1,000 ML IV ONE (11:15)
[2022-01-26] MEDS ORDERED: HALOPERIDOL LACTATE 5 MG/ML INJ VIAL IV ONE (11:30)
[2022-01-26 11:54] LABS: Basophils # (auto) 0.1 10 ^3/uL (0-0.2); Basophils % (auto) 0.4 % (0.0-2.0); Eosinophils # (auto) 0.5 10 ^3/uL (0-0.8); Eosinophils % (auto) 2.9 % (0.0-7.0); Hematocrit 32.2 % (41.0-53.0); Hemoglobin 11.2 g/dL (13.5-17.5); Lymphocytes # (auto) 2.6 10 ^3/uL (0.4-5.4); Mean Corpuscular Hemoglobin 29.2 pg (28.0-32.0); Mean Corpuscular Hgb Conc. 34.8 g/dL (32.0-36.0); Monocytes # (auto) 0.9 10 ^3/uL (0-1.3); Monocytes % (auto) 5.4 % (0.0-12.0); Neutrophils % (auto) 76.3 % (37.0-80.0); Nucleated Red Blood Cells % 0.1 %; Red Blood Cells 3.83 10^6/uL (4.5-5.90); Red Cell Distribution Width 16.5 % (11.8-14.3); White Blood Cell 17.1 10^3/uL (4.4-10.8)
[2022-01-26 12:01] LABS: Urine Bacteria NONE SEEN /hpf (None Seen); Urine Blood Negative /uL (Negative); Urine Specific Gravity 1.017 (1.001-1.035); Urine WBC 16 /hpf (0 - 3)
[2022-01-26 12:04] LABS: Albumin 3.3 g/dL (3.4-5.0); BUN/Creatinine Ratio 43.4; Calcium 10.2 mg/dL (8.5-10.1); Magnesium 3.1 mg/dL (1.6-2.6)
[2022-01-26 12:07] LABS: Bilirubin, Total 0.5 mg/dL (0.2-1.0); Total Protein 8.7 g/dL (6.4-8.2)
[2022-01-26 12:18] LABS: Alcohol, Urine < 3.0 mg/dL (0-10); Amphetamine Screen, Urine NEGATIVE (NEGATIVE); Barbiturate Scree,Urine NEGATIVE (NEGATIVE); Benzodiazephine Screen, Urine NEGATIVE (NEGATIVE); Cannabinoid Screen, Urine POSITIVE (NEGATIVE); Cocaine Screen, Urine NEGATIVE (NEGATIVE); Phencyclidine Screen, Urine NEGATIVE (NEGATIVE)
[2022-01-26] MEDS ORDERED: HALOPERIDOL LACTATE 5 MG/ML INJ VIAL IM ONE (12:45)
[2022-01-26 12:47] LABS: Opiate Scree,Urine POSITIVE (NEGATIVE)
[2022-01-26] MEDS ORDERED: cefTRIAXone 1GM/50ML D5W 50 ML IV ONE (15:15)
[2022-01-26] MEDS ORDERED: VANCOMYCIN PER PHARMACY 0 MG IV SCH (15:45)
[2022-01-26] MEDS ORDERED: NITROGLYCERIN 0.4 MG SL TAB SL PRN (15:45)
[2022-01-26] MEDS ORDERED: LORazepam 2MG/ML-1ML VIAL IV PRN (15:45)
[2022-01-26] MEDS ORDERED: PIPERACILLIN-TAZOB 3.375GM 100 ML IV ONE (15:45)
[2022-01-26] MEDS ORDERED: FAMO20TA10 PO (20:42)
[2022-01-26] MEDS ORDERED: MORP10CA10 PO (20:42)
[2022-01-26] MEDS ORDERED: LORA0.5T20 PO (20:42)
[2022-01-26] MEDS: VANCOMYCIN 1GM/250ML 250 ML IV SCH (21:40)
[2022-01-26 22:00] VITALS: BP 119/64
[2022-01-26] MEDS: HALOPERIDOL LACTATE 5 MG/ML INJ VIAL IM PRN (22:03)
[2022-01-26] MEDS ORDERED: HYDR-4798 PO (23:08)
[2022-01-26] MEDS ORDERED: THIA100T5 PO (23:08)
[2022-01-26] MEDS ORDERED: FOLI1TAB6 PO (23:08)
[2022-01-26] MEDS ORDERED: ASCO500T11 PO ×2 (23:08)
[2022-01-26] MEDS ORDERED: IPRIH INH (23:08)
[2022-01-26] MEDS ORDERED: PREG75CA PO (23:08)
[2022-01-26] MEDS ORDERED: ROSU20TA14 PO (23:08)
[2022-01-26] MEDS ORDERED: ALBU108A5 IN (23:08)
[2022-01-26] MEDS ORDERED: ACET-1156 PO (23:08)
[2022-01-26] MEDS ORDERED: FURO1TAB33 PO (23:08)
[2022-01-26] MEDS ORDERED: HYDR25TA87 PO (23:08)
[2022-01-26] MEDS ORDERED: MET25T PO (23:08)
[2022-01-26] MEDS: PIPERACILLIN-TAZOB 3.375GM 100 ML IV SCH (23:41)
[2022-01-27] MEDS ORDERED: LORazepam 0.5 MG TAB PO PRN (01:15)
[2022-01-27] MEDS ORDERED: METOCLOPRAMIDE HCL 5MG/ml INJ 2ml VIAL IV PRN (01:15)
[2022-01-27] MEDS ORDERED: hydrALAZINE HCL 20 MG/ML VL IV PRN (01:15)
[2022-01-27] MEDS ORDERED: HYDROcodone-ACET 5/325MG TAB PO ONE (01:15)
[2022-01-27] MEDS ORDERED: MULTIPLE VITAMINS W/ MINERALS TAB PO ONE (01:15)
[2022-01-27] MEDS ORDERED: LACTULOSE 20Gm/30ML SOLN PO PRN (01:15)
[2022-01-27] MEDS ORDERED: IPRATROPIUM BROM 0.5 MG/2.5ML INH SOL NEB ONE (01:15)
[2022-01-27] MEDS ORDERED: FERROUS SULFATE 325mg EC TAB PO ONE (01:15)
[2022-01-27] MEDS ORDERED: DOCUSATE SOD 100 MG CAP PO PRN (01:15)
[2022-01-27] MEDS ORDERED: SUCRALFATE 1 GM/10 ML ORAL SUSP PO ONE (01:15)
[2022-01-27] MEDS ORDERED: PANTOPRAZOLE 40 MG/10 ML VIAL INJ IV ONE (01:15)
[2022-01-27] MEDS ORDERED: BUDESONIDE (INHALATION) 0.5 MG/2 ML NEB NEB ONE (01:15)
[2022-01-27] MEDS ORDERED: THIAMINE 100mg/ml INJ (200mg/2ml VIAL) IV ONE (01:15)
[2022-01-27] MEDS ORDERED: FOLIC ACID 1 MG TAB PO ONE (01:15)
[2022-01-27] MEDS ORDERED: ALBUTEROL SULF 2.5 MG/0.5ML(0.5%) NEB SOLN NEB ONE (01:15)
[2022-01-27] MEDS ORDERED: ZOLEDRONIC ACID 4 MG in SODIUM CHL 0.9% 100 ML IV ONE (01:30)
[2022-01-27] MEDS ORDERED: SODIUM CHLORIDE 0.9% 1,000 ML IV SCH (01:30)
[2022-01-27] MEDS: ALBUTEROL SULF 2.5 MG/0.5ML(0.5%) NEB SOLN NEB PRN ×3 (02:04→22:49)
[2022-01-27] MEDS: IPRATROPIUM BROM 0.5 MG/2.5ML INH SOL NEB SCH ×6 (02:04→22:49)
[2022-01-27 03:22] VITALS: BP 95/65
[2022-01-27 05:00] VITALS: BP 134/75
[2022-01-27 06:07] LABS: RPR Non Reactive (Non Reactive)
[2022-01-27] MEDS: PIPERACILLIN-TAZOB 3.375GM 100 ML IV SCH ×4 (06:30→23:00)
[2022-01-27 07:04] LABS: Basophils # (auto) 0.2 10 ^3/uL (0-0.2); Eosinophils # (auto) 0.1 10 ^3/uL (0-0.8); Eosinophils % (auto) 0.5 % (0.0-7.0); Hematocrit 32.9 % (41.0-53.0); Hemoglobin 11.6 g/dL (13.5-17.5); Lymphocytes # (auto) 1.8 10 ^3/uL (0.4-5.4); Lymphocytes % (auto) 8.9 % (10.0-50.0); Mean Corpuscular Hemoglobin 29.4 pg (28.0-32.0); Mean Corpuscular Hgb Conc. 35.3 g/dL (32.0-36.0); Mean Corpuscular Volume 83.1 fL (80.0-100.0); Monocytes # (auto) 1.1 10 ^3/uL (0-1.3); Monocytes % (auto) 5.7 % (0.0-12.0); Neutrophils # (auto) 16.7 10 ^3/uL (1.6-8.6); Neutrophils % (auto) 83.9 % (37.0-80.0); Red Blood Cells 3.96 10^6/uL (4.5-5.90); Red Cell Distribution Width 16.1 % (11.8-14.3)
[2022-01-27] MEDS: ACETYLCYSTEINE 10 %(100MG/ML) SOL 4ML NEB SCH ×3 (07:17→19:17)
[2022-01-27] MEDS: BUDESONIDE (INHALATION) 0.5 MG/2 ML NEB NEB SCH ×2 (07:18→19:02)
[2022-01-27 07:30] LABS: Potassium 4.5 mmol/L (3.5-5.1)
[2022-01-27 07:51] LABS: INR 1.1 (0.9-1.15); Partial Thromboplastin Time 29.9 sec (23.6-33.0)
[2022-01-27 07:52] LABS: Albumin 3.4 g/dL (3.4-5.0); BUN/Creatinine Ratio 37.1; Bilirubin, Total 0.7 mg/dL (0.2-1.0); CRP High Sensitivity 6.68 mg/dL (< 0.3); Calcium 9.7 mg/dL (8.5-10.1); Magnesium 2.6 mg/dL (1.6-2.6); Phosphorus 3.7 mg/dL (2.5-4.90); Total Protein 9.2 g/dL (6.4-8.2); Uric Acid 6.6 mg/dL (3.5-7.2)
[2022-01-27] MEDS: chlordiazePOXIDE HCL 25 MG CAP PO SCH ×3 (07:56→18:44)
[2022-01-27 09:00] VITALS: BP 130/65
[2022-01-27] MEDS: SUCRALFATE 1 GM/10 ML ORAL SUSP PO SCH ×3 (11:30→21:25)
[2022-01-27] MEDS: FERROUS SULFATE 325mg EC TAB PO SCH ×2 (12:00→18:44)
[2022-01-27] MEDS: PANTOPRAZOLE 40 MG/10 ML VIAL INJ IV SCH (12:08)
[2022-01-27] MEDS: ASPirin 81 mg TAB PO SCH (12:08)
[2022-01-27] MEDS: CYANOCOBALAMIN 500 MCG TAB PO SCH (12:09)
[2022-01-27] MEDS: MULTIPLE VITAMINS W/ MINERALS TAB PO SCH (12:09)
[2022-01-27] MEDS: THIAMINE HCL 100 MG TAB PO SCH (12:09)
[2022-01-27] MEDS: FOLIC ACID 1 MG TAB PO SCH (12:09)
[2022-01-27] MEDS: CHOLECALCIFEROL (VITD3) 2,000 UNIT CAP/TAB PO SCH (12:10)
[2022-01-27] MEDS: HYDROcodone-ACET 5/325MG TAB PO PRN (12:10)
[2022-01-27] MEDS: ENOXAPARIN SOD 40 MG/0.4 ML SYRINGE SC SCH (12:10)
[2022-01-27 13:00] VITALS: BP 140/64
[2022-01-27 17:00] VITALS: BP 96/39
[2022-01-27] MEDS: ATORVASTATIN 20 MG TAB PO SCH (21:25)
[2022-01-27] MEDS: VANCOMYCIN 1GM/250ML 250 ML IV SCH (21:34)
[2022-01-28] VITALS (8 sets, daily range): BP systolic 98–147; BP diastolic 75–85
[2022-01-28] MEDS: IPRATROPIUM BROM 0.5 MG/2.5ML INH SOL NEB SCH ×6 (02:25→22:44)
[2022-01-28] MEDS: ALBUTEROL SULF 2.5 MG/0.5ML(0.5%) NEB SOLN NEB PRN ×2 (02:25→19:37)
[2022-01-28] MEDS: PIPERACILLIN-TAZOB 3.375GM 100 ML IV SCH ×4 (05:03→23:50)
[2022-01-28 05:46] LABS: Basophils # (auto) 0.1 10 ^3/uL (0-0.2); Basophils % (auto) 0.7 % (0.0-2.0); Eosinophils # (auto) 0.1 10 ^3/uL (0-0.8); Eosinophils % (auto) 0.5 % (0.0-7.0); Hematocrit 32.3 % (41.0-53.0); Hemoglobin 11.2 g/dL (13.5-17.5); Lymphocytes # (auto) 2.3 10 ^3/uL (0.4-5.4); Lymphocytes % (auto) 12.4 % (10.0-50.0); Mean Corpuscular Hemoglobin 29.2 pg (28.0-32.0); Mean Corpuscular Hgb Conc. 34.9 g/dL (32.0-36.0); Mean Corpuscular Volume 83.9 fL (80.0-100.0); Monocytes # (auto) 1.2 10 ^3/uL (0-1.3); Monocytes % (auto) 6.3 % (0.0-12.0); Neutrophils # (auto) 14.9 10 ^3/uL (1.6-8.6); Neutrophils % (auto) 80.1 % (37.0-80.0); Red Blood Cells 3.84 10^6/uL (4.5-5.90); Red Cell Distribution Width 16.2 % (11.8-14.3); White Blood Cell 18.6 10^3/uL (4.4-10.8)
[2022-01-28 05:57] LABS: INR 1.16 (0.9-1.15); Partial Thromboplastin Time 31.3 sec (23.6-33.0)
[2022-01-28 06:08] LABS: Albumin 3.3 g/dL (3.4-5.0); BUN/Creatinine Ratio 35.2; Calcium 9.7 mg/dL (8.5-10.1); Potassium 4.3 mmol/L (3.5-5.1)
[2022-01-28 06:09] LABS: Bilirubin, Total 0.6 mg/dL (0.2-1.0); Total Protein 8.7 g/dL (6.4-8.2)
[2022-01-28] MEDS: HYDROcodone-ACET 5/325MG TAB PO PRN (06:21)
[2022-01-28] MEDS: SUCRALFATE 1 GM/10 ML ORAL SUSP PO SCH ×4 (06:21→21:54)
[2022-01-28] MEDS: ACETYLCYSTEINE 10 %(100MG/ML) SOL 4ML NEB SCH ×3 (06:53→19:38)
[2022-01-28] MEDS: BUDESONIDE (INHALATION) 0.5 MG/2 ML NEB NEB SCH ×2 (06:53→22:44)
[2022-01-28] MEDS: FERROUS SULFATE 325mg EC TAB PO SCH ×3 (08:00→18:00)
[2022-01-28] MEDS ORDERED: ANGIOMAX 250 MG VIAL IV ONE ×2 (09:16→10:54)
[2022-01-28] MEDS ORDERED: SODIUM CHL 0.9% 50 ML ONE ×2 (09:17→10:54)
[2022-01-28] MEDS ORDERED: fentaNYL CITRATE 100 MCG/2 ML VL ONE (09:17)
[2022-01-28] MEDS ORDERED: diphenhdrAMINE HCL 50 MG/1 ML VL ONE (09:17)
[2022-01-28] MEDS ORDERED: MIDAZOLAM HCL 2MG/2ML 2ml VIAL (1mg/ml) ONE ×2 (09:17→09:50)
[2022-01-28] MEDS ORDERED: LIDOCAINE 2%HCL (LOCAL ANESTH.) INJ 10ml MDV ONE (09:18)
[2022-01-28] MEDS ORDERED: HEPARIN IN NS 1000Units/500mL 1,500 ML ONE (09:18)
[2022-01-28] MEDS ORDERED: IODIXANOL 320MG/ML 100ML BTL IV ONE ×3 (09:21→11:30)
[2022-01-28] MEDS: ASPirin 81 mg TAB PO SCH (10:00)
[2022-01-28] MEDS: FOLIC ACID 1 MG TAB PO SCH (10:00)
[2022-01-28] MEDS: ENOXAPARIN SOD 40 MG/0.4 ML SYRINGE SC SCH (10:00)
[2022-01-28] MEDS: chlordiazePOXIDE HCL 25 MG CAP PO SCH ×2 (10:00→21:53)
[2022-01-28] MEDS: THIAMINE HCL 100 MG TAB PO SCH (10:00)
[2022-01-28] MEDS: PANTOPRAZOLE 40 MG/10 ML VIAL INJ IV SCH (10:00)
[2022-01-28] MEDS: CYANOCOBALAMIN 500 MCG TAB PO SCH (10:00)
[2022-01-28] MEDS: CHOLECALCIFEROL (VITD3) 2,000 UNIT CAP/TAB PO SCH (10:00)
[2022-01-28] MEDS: MULTIPLE VITAMINS W/ MINERALS TAB PO SCH (10:00)
[2022-01-28] MEDS ORDERED: HYDROmorphone HCL 2 MG/ML VL ONE (10:15)
[2022-01-28] MEDS ORDERED: LORazepam 2MG/ML-1ML VIAL IV ONE (10:45)
[2022-01-28] MEDS ORDERED: IOHEXOL 350 MG/ML 100ML IJ ONE (11:30)
[2022-01-28] MEDS ORDERED: OLANZapine 5 MG TAB PO ONE (12:00)
[2022-01-28] MEDS: HALOPERIDOL LACTATE 5 MG/ML INJ VIAL IM PRN (20:57)
[2022-01-28] MEDS: VANCOMYCIN 1GM/250ML 250 ML IV SCH (20:58)
[2022-01-28] MEDS: ATORVASTATIN 20 MG TAB PO SCH (21:52)
[2022-01-29] MEDS: HYDROcodone-ACET 5/325MG TAB PO PRN (02:40)
[2022-01-29] MEDS: IPRATROPIUM BROM 0.5 MG/2.5ML INH SOL NEB SCH ×4 (02:53→21:45)
[2022-01-29] MEDS: ALBUTEROL SULF 2.5 MG/0.5ML(0.5%) NEB SOLN NEB PRN ×2 (02:53→13:34)
[2022-01-29] MEDS: SUCRALFATE 1 GM/10 ML ORAL SUSP PO SCH ×4 (06:29→22:57)
[2022-01-29 06:37] LABS: Basophils # (auto) 0.1 10 ^3/uL (0-0.2); Basophils % (auto) 0.4 % (0.0-2.0); Eosinophils # (auto) 0.3 10 ^3/uL (0-0.8); Eosinophils % (auto) 1.5 % (0.0-7.0); Hematocrit 28.7 % (41.0-53.0); Hemoglobin 10.2 g/dL (13.5-17.5); Lymphocytes # (auto) 2.1 10 ^3/uL (0.4-5.4); Lymphocytes % (auto) 11.2 % (10.0-50.0); Mean Corpuscular Hemoglobin 29.7 pg (28.0-32.0); Mean Corpuscular Hgb Conc. 35.6 g/dL (32.0-36.0); Mean Corpuscular Volume 83.5 fL (80.0-100.0); Monocytes # (auto) 1.3 10 ^3/uL (0-1.3); Monocytes % (auto) 7.2 % (0.0-12.0); Neutrophils % (auto) 79.7 % (37.0-80.0); Nucleated Red Blood Cells % 0.2 %; Red Blood Cells 3.44 10^6/uL (4.5-5.90); Red Cell Distribution Width 16.1 % (11.8-14.3); White Blood Cell 18.8 10^3/uL (4.4-10.8)
[2022-01-29 06:59] LABS: Calcium 9.1 mg/dL (8.5-10.1); Potassium 3.8 mmol/L (3.5-5.1)
[2022-01-29 07:01] LABS: BUN/Creatinine Ratio 35.7
[2022-01-29 07:19] LABS: Bilirubin, Total 0.8 mg/dL (0.2-1.0)
[2022-01-29 07:40] LABS: Magnesium 2.9 mg/dL (1.6-2.6)
[2022-01-29 07:44] LABS: Phosphorus 5.4 mg/dL (2.5-4.90)
[2022-01-29] MEDS: FERROUS SULFATE 325mg EC TAB PO SCH ×3 (08:00→18:00)
[2022-01-29 08:09] VITALS: BP 108/48
[2022-01-29] MEDS ORDERED: ACYCLOVIR 10MG/KG Q8HR PER RX 0 ML IV SCH (09:30)
[2022-01-29] MEDS: THIAMINE HCL 100 MG TAB PO SCH (10:00)
[2022-01-29] MEDS: FOLIC ACID 1 MG TAB PO SCH (10:00)
[2022-01-29] MEDS: MULTIPLE VITAMINS W/ MINERALS TAB PO SCH (10:00)
[2022-01-29] MEDS: chlordiazePOXIDE HCL 25 MG CAP PO SCH ×2 (10:00→22:57)
[2022-01-29] MEDS: CYANOCOBALAMIN 500 MCG TAB PO SCH (10:00)
[2022-01-29] MEDS: ENOXAPARIN SOD 40 MG/0.4 ML SYRINGE SC SCH (10:00)
[2022-01-29] MEDS: PANTOPRAZOLE 40 MG/10 ML VIAL INJ IV SCH (10:00)
[2022-01-29] MEDS: CHOLECALCIFEROL (VITD3) 2,000 UNIT CAP/TAB PO SCH (10:00)
[2022-01-29] MEDS: ASPirin 81 mg TAB PO SCH (10:00)
[2022-01-29] MEDS: ACYCLOVIR SOD 50MG/ML 700 MG in SODIUM CHL 0.9% 250 ML IV SCH ×2 (11:00→23:07)
[2022-01-29] MEDS: PIPERACILLIN-TAZOB 3.375GM 100 ML IV SCH ×3 (11:00→23:00)
[2022-01-29] MEDS: SODIUM BICARBONATE 50ML VIAL 50 ML in SOD CHL 0.45% 1,000 ML IV SCH ×2 (12:00→22:30)
[2022-01-29 12:46] VITALS: BP 96/61
[2022-01-29] MEDS: BUDESONIDE (INHALATION) 0.5 MG/2 ML NEB NEB SCH ×2 (13:30→21:45)
[2022-01-29 15:40] LABS: Amphetamine Screen, Urine NEGATIVE (NEGATIVE); Barbiturate Scree,Urine NEGATIVE (NEGATIVE); Benzodiazephine Screen, Urine POSITIVE (NEGATIVE); Cannabinoid Screen, Urine NEGATIVE (NEGATIVE); Cocaine Screen, Urine NEGATIVE (NEGATIVE); Opiate Scree,Urine POSITIVE (NEGATIVE)
[2022-01-29 15:47] LABS: Phencyclidine Screen, Urine NEGATIVE (NEGATIVE)
[2022-01-29 15:55] LABS: Creatinine, Urine 154 mg/dL (30.0-125.0); Sodium Urine 14 mmol/L (40-220)
[2022-01-29 16:52] VITALS: BP 117/57
[2022-01-29] MEDS: VANCOMYCIN 1GM/250ML 250 ML IV SCH (20:47)
[2022-01-29 22:00] VITALS: BP 108/73
[2022-01-29] MEDS: ATORVASTATIN 20 MG TAB PO SCH (22:57)
[2022-01-30 01:13] VITALS: BP 105/67
[2022-01-30] MEDS: HYDROcodone-ACET 5/325MG TAB PO PRN (02:27)
[2022-01-30 05:00] VITALS: BP 102/56
[2022-01-30] MEDS: PIPERACILLIN-TAZOB 3.375GM 100 ML IV SCH ×4 (05:13→22:39)
[2022-01-30 05:54] LABS: Basophils # (auto) 0.1 10 ^3/uL (0-0.2); Basophils % (auto) 0.4 % (0.0-2.0); Eosinophils # (auto) 0.5 10 ^3/uL (0-0.8); Eosinophils % (auto) 3.2 % (0.0-7.0); Hematocrit 26.6 % (41.0-53.0); Hemoglobin 9.4 g/dL (13.5-17.5); Lymphocytes # (auto) 1.6 10 ^3/uL (0.4-5.4); Lymphocytes % (auto) 10.5 % (10.0-50.0); Mean Corpuscular Hemoglobin 29.2 pg (28.0-32.0); Mean Corpuscular Hgb Conc. 35.3 g/dL (32.0-36.0); Mean Corpuscular Volume 82.9 fL (80.0-100.0); Monocytes % (auto) 6.7 % (0.0-12.0); Neutrophils # (auto) 12.1 10 ^3/uL (1.6-8.6); Neutrophils % (auto) 79.2 % (37.0-80.0); Red Blood Cells 3.21 10^6/uL (4.5-5.90); White Blood Cell 15.2 10^3/uL (4.4-10.8)
[2022-01-30 06:12] LABS: Calcium 8.4 mg/dL (8.5-10.1); Potassium 3.8 mmol/L (3.5-5.1)
[2022-01-30 06:15] LABS: Albumin 2.6 g/dL (3.4-5.0); BUN/Creatinine Ratio 43.9
[2022-01-30] MEDS ORDERED: LORazepam 2MG/ML-1ML VIAL IV PRN (06:15)
[2022-01-30] MEDS: SUCRALFATE 1 GM/10 ML ORAL SUSP PO SCH ×4 (06:17→21:44)
[2022-01-30] MEDS: BUDESONIDE (INHALATION) 0.5 MG/2 ML NEB NEB SCH ×2 (06:18→21:16)
[2022-01-30] MEDS: IPRATROPIUM BROM 0.5 MG/2.5ML INH SOL NEB SCH ×3 (06:18→21:16)
[2022-01-30 06:19] LABS: Bilirubin, Total 0.6 mg/dL (0.2-1.0); Total Protein 7.1 g/dL (6.4-8.2)
[2022-01-30] MEDS ORDERED: chlordiazePOXIDE HCL 25 MG CAP PO SCH (07:00)
[2022-01-30] MEDS: FERROUS SULFATE 325mg EC TAB PO SCH ×3 (08:00→18:00)
[2022-01-30 08:30] VITALS: BP 110/75
[2022-01-30] MEDS: SODIUM BICARBONATE 50ML VIAL 50 ML in SOD CHL 0.45% 1,000 ML IV SCH (09:00)
[2022-01-30] MEDS: ASPirin 81 mg TAB PO SCH (10:00)
[2022-01-30] MEDS: PANTOPRAZOLE 40 MG/10 ML VIAL INJ IV SCH (10:00)
[2022-01-30] MEDS: FOLIC ACID 1 MG TAB PO SCH (10:00)
[2022-01-30] MEDS: ENOXAPARIN SOD 40 MG/0.4 ML SYRINGE SC SCH (10:00)
[2022-01-30] MEDS: CHOLECALCIFEROL (VITD3) 2,000 UNIT CAP/TAB PO SCH (10:00)
[2022-01-30] MEDS: CYANOCOBALAMIN 500 MCG TAB PO SCH (10:00)
[2022-01-30] MEDS: MULTIPLE VITAMINS W/ MINERALS TAB PO SCH (10:00)
[2022-01-30] MEDS: THIAMINE HCL 100 MG TAB PO SCH (10:00)
[2022-01-30] MEDS: ACYCLOVIR SOD 50MG/ML 700 MG in SODIUM CHL 0.9% 250 ML IV SCH ×2 (11:00→22:40)
[2022-01-30] MEDS: MUPIROCIN 2% OINT 15gm or 22gm EACHNOSTRI SCH ×2 (11:00→21:58)
[2022-01-30 12:30] VITALS: BP 103/52
[2022-01-30] MEDS ORDERED: VANCOMYCIN PER PHARMACY 0 MG IV SCH (12:30)
[2022-01-30 16:33] VITALS: BP 115/55
[2022-01-30 20:00] VITALS: BP 102/59
[2022-01-30] MEDS: ALBUTEROL SULF 2.5 MG/0.5ML(0.5%) NEB SOLN NEB PRN (21:16)
[2022-01-30] MEDS: ATORVASTATIN 20 MG TAB PO SCH (21:44)
[2022-01-31] MEDS: VANCOMYCIN 750mg/250ml 250 ML IV SCH (03:35)
[2022-01-31] MEDS: SODIUM BICARBONATE 50ML VIAL 50 ML in SOD CHL 0.45% 1,000 ML IV SCH ×3 (03:37→18:04)
[2022-01-31] MEDS: PIPERACILLIN-TAZOB 3.375GM 100 ML IV SCH ×4 (04:25→23:23)
[2022-01-31 05:00] VITALS: BP 120/57
[2022-01-31 05:59] LABS: Basophils # (auto) 0.1 10 ^3/uL (0-0.2); Basophils % (auto) 0.6 % (0.0-2.0); Eosinophils # (auto) 0.6 10 ^3/uL (0-0.8); Eosinophils % (auto) 5.2 % (0.0-7.0); Hematocrit 25.2 % (41.0-53.0); Hemoglobin 8.9 g/dL (13.5-17.5); Lymphocytes # (auto) 1.8 10 ^3/uL (0.4-5.4); Lymphocytes % (auto) 14.2 % (10.0-50.0); Mean Corpuscular Hemoglobin 29.3 pg (28.0-32.0); Mean Corpuscular Hgb Conc. 35.3 g/dL (32.0-36.0); Mean Corpuscular Volume 82.9 fL (80.0-100.0); Monocytes # (auto) 0.8 10 ^3/uL (0-1.3); Monocytes % (auto) 6.4 % (0.0-12.0); Neutrophils # (auto) 9.1 10 ^3/uL (1.6-8.6); Neutrophils % (auto) 73.6 % (37.0-80.0); Nucleated Red Blood Cells % 0.1 %; Red Blood Cells 3.05 10^6/uL (4.5-5.90); Red Cell Distribution Width 15.8 % (11.8-14.3); White Blood Cell 12.3 10^3/uL (4.4-10.8)
[2022-01-31 06:00] VITALS: BP 120/57
[2022-01-31] MEDS: SUCRALFATE 1 GM/10 ML ORAL SUSP PO SCH ×4 (06:17→22:23)
[2022-01-31 07:00] VITALS: BP 112/59
[2022-01-31] MEDS: BUDESONIDE (INHALATION) 0.5 MG/2 ML NEB NEB SCH ×2 (07:24→21:31)
[2022-01-31] MEDS: IPRATROPIUM BROM 0.5 MG/2.5ML INH SOL NEB SCH ×3 (07:24→21:31)
[2022-01-31] MEDS: ALBUTEROL SULF 2.5 MG/0.5ML(0.5%) NEB SOLN NEB PRN ×2 (07:24→21:31)
[2022-01-31] MEDS: FERROUS SULFATE 325mg EC TAB PO SCH ×3 (08:00→18:07)
[2022-01-31] MEDS: THIAMINE HCL 100 MG TAB PO SCH (10:00)
[2022-01-31] MEDS: ASPirin 81 mg TAB PO SCH (10:00)
[2022-01-31] MEDS: MULTIPLE VITAMINS W/ MINERALS TAB PO SCH (10:00)
[2022-01-31] MEDS: PANTOPRAZOLE 40 MG/10 ML VIAL INJ IV SCH (10:00)
[2022-01-31] MEDS: CYANOCOBALAMIN 500 MCG TAB PO SCH (10:00)
[2022-01-31] MEDS: FOLIC ACID 1 MG TAB PO SCH (10:00)
[2022-01-31] MEDS: MUPIROCIN 2% OINT 15gm or 22gm EACHNOSTRI SCH ×2 (10:00→22:00)
[2022-01-31] MEDS: CHOLECALCIFEROL (VITD3) 2,000 UNIT CAP/TAB PO SCH (10:00)
[2022-01-31] MEDS ORDERED: LORazepam 2MG/ML-1ML VIAL IV ONE (10:15)
[2022-01-31] MEDS: ENOXAPARIN SOD 40 MG/0.4 ML SYRINGE SC SCH (10:46)
[2022-01-31 12:35] VITALS: BP 150/60
[2022-01-31] MEDS: ACYCLOVIR SOD 50MG/ML 700 MG in SODIUM CHL 0.9% 250 ML IV SCH ×2 (15:11→22:24)
[2022-01-31 16:14] VITALS: BP 112/56
[2022-01-31] MEDS: Juven Fruit Punch Powder PACKET 28.8gm PO SCH (18:13)
[2022-01-31 21:54] VITALS: BP 134/75
[2022-01-31] MEDS: ATORVASTATIN 20 MG TAB PO SCH (22:23)
[2022-02-01] MEDS: SODIUM BICARBONATE 50ML VIAL 50 ML in SOD CHL 0.45% 1,000 ML IV SCH (03:00)
[2022-02-01 03:33] LABS: Basophils # (auto) 0.1 10 ^3/uL (0-0.2); Basophils % (auto) 0.5 % (0.0-2.0); Eosinophils # (auto) 0.5 10 ^3/uL (0-0.8); Eosinophils % (auto) 4.2 % (0.0-7.0); Hematocrit 26.1 % (41.0-53.0); Hemoglobin 9.1 g/dL (13.5-17.5); Lymphocytes # (auto) 1.8 10 ^3/uL (0.4-5.4); Lymphocytes % (auto) 14.5 % (10.0-50.0); Mean Corpuscular Hemoglobin 29.4 pg (28.0-32.0); Mean Corpuscular Hgb Conc. 35.1 g/dL (32.0-36.0); Monocytes # (auto) 0.7 10 ^3/uL (0-1.3); Monocytes % (auto) 5.9 % (0.0-12.0); Neutrophils # (auto) 9.2 10 ^3/uL (1.6-8.6); Neutrophils % (auto) 74.9 % (37.0-80.0); Nucleated Red Blood Cells % 0.1 %; Red Cell Distribution Width 15.6 % (11.8-14.3); White Blood Cell 12.3 10^3/uL (4.4-10.8)
[2022-02-01] MEDS: VANCOMYCIN 750mg/250ml 250 ML IV SCH (03:56)
[2022-02-01 04:48] VITALS: BP 128/64
[2022-02-01] MEDS: PIPERACILLIN-TAZOB 3.375GM 100 ML IV SCH ×4 (05:08→23:00)
[2022-02-01 05:37] LABS: Basophils # (auto) 0.1 10 ^3/uL (0-0.2); Basophils % (auto) 0.7 % (0.0-2.0); Eosinophils # (auto) 0.6 10 ^3/uL (0-0.8); Eosinophils % (auto) 5.1 % (0.0-7.0); Hematocrit 27.2 % (41.0-53.0); Hemoglobin 9.5 g/dL (13.5-17.5); Lymphocytes # (auto) 1.7 10 ^3/uL (0.4-5.4); Lymphocytes % (auto) 14.1 % (10.0-50.0); Mean Corpuscular Hemoglobin 29.1 pg (28.0-32.0); Mean Corpuscular Hgb Conc. 34.9 g/dL (32.0-36.0); Mean Corpuscular Volume 83.4 fL (80.0-100.0); Monocytes # (auto) 0.7 10 ^3/uL (0-1.3); Monocytes % (auto) 5.5 % (0.0-12.0); Neutrophils # (auto) 9.1 10 ^3/uL (1.6-8.6); Neutrophils % (auto) 74.6 % (37.0-80.0); Red Blood Cells 3.25 10^6/uL (4.5-5.90); Red Cell Distribution Width 15.6 % (11.8-14.3); White Blood Cell 12.2 10^3/uL (4.4-10.8)
[2022-02-01 05:51] LABS: Potassium 3.5 mmol/L (3.5-5.1)
[2022-02-01] MEDS: ACYCLOVIR SOD 50MG/ML 700 MG in SODIUM CHL 0.9% 250 ML IV SCH ×3 (05:54→22:09)
[2022-02-01 05:56] LABS: Albumin 2.3 g/dL (3.4-5.0); Bilirubin, Total 0.6 mg/dL (0.2-1.0); Calcium 8.5 mg/dL (8.5-10.1); Total Protein 7.1 g/dL (6.4-8.2)
[2022-02-01] MEDS: ALBUTEROL SULF 2.5 MG/0.5ML(0.5%) NEB SOLN NEB PRN ×2 (06:46→22:23)
[2022-02-01] MEDS: BUDESONIDE (INHALATION) 0.5 MG/2 ML NEB NEB SCH ×2 (06:46→22:23)
[2022-02-01] MEDS: IPRATROPIUM BROM 0.5 MG/2.5ML INH SOL NEB SCH ×3 (06:47→22:23)
[2022-02-01] MEDS: SUCRALFATE 1 GM/10 ML ORAL SUSP PO SCH ×4 (06:57→22:06)
[2022-02-01] MEDS: HYDROcodone-ACET 5/325MG TAB PO PRN ×2 (06:58→17:23)
[2022-02-01 08:49] VITALS: BP 111/61
[2022-02-01] MEDS: PANTOPRAZOLE 40 MG/10 ML VIAL INJ IV SCH (11:05)
[2022-02-01] MEDS: FOLIC ACID 1 MG TAB PO SCH (11:06)
[2022-02-01] MEDS: THIAMINE HCL 100 MG TAB PO SCH (11:06)
[2022-02-01] MEDS: ASPirin 81 mg TAB PO SCH (11:06)
[2022-02-01] MEDS: Juven Fruit Punch Powder PACKET 28.8gm PO SCH ×2 (11:07→17:21)
[2022-02-01] MEDS: MUPIROCIN 2% OINT 15gm or 22gm EACHNOSTRI SCH ×2 (11:07→22:08)
[2022-02-01] MEDS: MULTIPLE VITAMINS W/ MINERALS TAB PO SCH (11:08)
[2022-02-01] MEDS: CYANOCOBALAMIN 500 MCG TAB PO SCH (11:08)
[2022-02-01] MEDS: ENOXAPARIN SOD 40 MG/0.4 ML SYRINGE SC SCH (11:08)
[2022-02-01] MEDS: CHOLECALCIFEROL (VITD3) 2,000 UNIT CAP/TAB PO SCH (11:08)
[2022-02-01] MEDS: FERROUS SULFATE 325mg EC TAB PO SCH ×3 (11:09→17:21)
[2022-02-01 13:00] VITALS: BP 117/75
[2022-02-01] MEDS: MORPHINE SULFATE INJECTION 2 MG/ML SYRG IV PRN ×3 (15:10→22:07)
[2022-02-01 17:00] VITALS: BP 111/61
[2022-02-01 22:03] VITALS: BP 105/67
[2022-02-01] MEDS: ATORVASTATIN 20 MG TAB PO SCH (22:07)
[2022-02-01 23:51] VITALS: BP 105/67
[2022-02-02 02:57] LABS: Basophils # (auto) 0.1 10 ^3/uL (0-0.2); Basophils % (auto) 0.7 % (0.0-2.0); Eosinophils # (auto) 0.7 10 ^3/uL (0-0.8); Eosinophils % (auto) 5.7 % (0.0-7.0); Hematocrit 25.5 % (41.0-53.0); Lymphocytes # (auto) 1.9 10 ^3/uL (0.4-5.4); Lymphocytes % (auto) 15.7 % (10.0-50.0); Mean Corpuscular Hemoglobin 29.4 pg (28.0-32.0); Mean Corpuscular Hgb Conc. 35.2 g/dL (32.0-36.0); Mean Corpuscular Volume 83.6 fL (80.0-100.0); Monocytes # (auto) 0.7 10 ^3/uL (0-1.3); Monocytes % (auto) 5.5 % (0.0-12.0); Neutrophils # (auto) 8.8 10 ^3/uL (1.6-8.6); Neutrophils % (auto) 72.4 % (37.0-80.0); Nucleated Red Blood Cells % 0.2 %; Red Blood Cells 3.05 10^6/uL (4.5-5.90); Red Cell Distribution Width 15.6 % (11.8-14.3); White Blood Cell 12.1 10^3/uL (4.4-10.8)
[2022-02-02 03:46] LABS: BUN/Creatinine Ratio 23.2; Calcium 8.6 mg/dL (8.5-10.1); Potassium 3.6 mmol/L (3.5-5.1)
[2022-02-02] MEDS: VANCOMYCIN 750mg/250ml 250 ML IV SCH (04:12)
[2022-02-02] MEDS: MORPHINE SULFATE INJECTION 2 MG/ML SYRG IV PRN ×2 (04:13→10:29)
[2022-02-02 05:00] VITALS: BP 114/60
[2022-02-02] MEDS: PIPERACILLIN-TAZOB 3.375GM 100 ML IV SCH ×3 (05:03→21:12)
[2022-02-02 05:50] LABS: Basophils # (auto) 0.1 10 ^3/uL (0-0.2); Basophils % (auto) 0.7 % (0.0-2.0); Eosinophils # (auto) 0.6 10 ^3/uL (0-0.8); Eosinophils % (auto) 4.9 % (0.0-7.0); Hematocrit 25.5 % (41.0-53.0); Lymphocytes # (auto) 1.8 10 ^3/uL (0.4-5.4); Lymphocytes % (auto) 15.3 % (10.0-50.0); Mean Corpuscular Hemoglobin 29.4 pg (28.0-32.0); Mean Corpuscular Hgb Conc. 35.5 g/dL (32.0-36.0); Mean Corpuscular Volume 82.8 fL (80.0-100.0); Monocytes # (auto) 0.6 10 ^3/uL (0-1.3); Monocytes % (auto) 5.2 % (0.0-12.0); Neutrophils # (auto) 8.6 10 ^3/uL (1.6-8.6); Neutrophils % (auto) 73.9 % (37.0-80.0); Nucleated Red Blood Cells % 0.1 %; Red Blood Cells 3.07 10^6/uL (4.5-5.90); Red Cell Distribution Width 15.8 % (11.8-14.3); White Blood Cell 11.6 10^3/uL (4.4-10.8)
[2022-02-02 06:11] LABS: Potassium 3.6 mmol/L (3.5-5.1)
[2022-02-02 06:21] LABS: Albumin 2.2 g/dL (3.4-5.0); BUN/Creatinine Ratio 22.5; Bilirubin, Total 0.5 mg/dL (0.2-1.0); Calcium 8.6 mg/dL (8.5-10.1); Total Protein 6.7 g/dL (6.4-8.2)
[2022-02-02] MEDS: IPRATROPIUM BROM 0.5 MG/2.5ML INH SOL NEB SCH ×3 (06:45→23:08)
[2022-02-02] MEDS: BUDESONIDE (INHALATION) 0.5 MG/2 ML NEB NEB SCH ×2 (06:45→23:08)
[2022-02-02] MEDS ORDERED: ROPIVACAINE 0.5% (5MG/ML) 20ML AMPULE IJ ONE (07:10)
[2022-02-02] MEDS ORDERED: ceFAZolin 1GM VL ONE (07:10)
[2022-02-02] MEDS ORDERED: SUCCINYLCHOLINE CHLORIDE 20 MG/ML 10ML VIAL IV ONE (07:12)
[2022-02-02] MEDS ORDERED: fentaNYL CITRATE 100 MCG/2 ML VL ONE (07:13)
[2022-02-02] MEDS ORDERED: MIDAZOLAM HCL 2MG/2ML 2ml VIAL (1mg/ml) ONE (07:13)
[2022-02-02] MEDS ORDERED: ceFAZolin 1GM/50ML 100 ML IV ONE (07:17)
[2022-02-02] MEDS ORDERED: ONDANSETRON HCL 4 MG/2 ML VIAL ONE (08:04)
[2022-02-02] MEDS ORDERED: PROPOFOL 10 MG/ML 20 ML IV ONE (08:04)
[2022-02-02] MEDS ORDERED: DexAMETHasone SOD PHOS 10MG/1ML VIAL INJ ONE (08:04)
[2022-02-02] MEDS ORDERED: fentaNYL CITRATE 100 MCG/2 ML VL IV PRN (08:15)
[2022-02-02] MEDS ORDERED: METOCLOPRAMIDE HCL 5MG/ml INJ 2ml VIAL IV PRN (08:15)
[2022-02-02] MEDS ORDERED: ONDANSETRON HCL 4 MG/2 ML VIAL IV PRN (08:15)
[2022-02-02] MEDS ORDERED: HYDROmorphone HCL 2 MG/ML VL IV PRN (08:15)
[2022-02-02 09:15] VITALS: BP 108/62
[2022-02-02] MEDS: ENOXAPARIN SOD 40 MG/0.4 ML SYRINGE SC SCH (10:00)
[2022-02-02] MEDS: SUCRALFATE 1 GM/10 ML ORAL SUSP PO SCH ×4 (10:23→21:12)
[2022-02-02] MEDS: PANTOPRAZOLE 40 MG/10 ML VIAL INJ IV SCH (10:24)
[2022-02-02] MEDS: FERROUS SULFATE 325mg EC TAB PO SCH ×3 (10:24→17:57)
[2022-02-02] MEDS: ASPirin 81 mg TAB PO SCH (10:24)
[2022-02-02] MEDS: MULTIPLE VITAMINS W/ MINERALS TAB PO SCH (10:25)
[2022-02-02] MEDS: CHOLECALCIFEROL (VITD3) 2,000 UNIT CAP/TAB PO SCH (10:25)
[2022-02-02] MEDS: CYANOCOBALAMIN 500 MCG TAB PO SCH (10:25)
[2022-02-02] MEDS: THIAMINE HCL 100 MG TAB PO SCH (10:25)
[2022-02-02] MEDS: FOLIC ACID 1 MG TAB PO SCH (10:26)
[2022-02-02] MEDS: MUPIROCIN 2% OINT 15gm or 22gm EACHNOSTRI SCH ×2 (10:26→22:00)
[2022-02-02] MEDS: ACYCLOVIR SOD 50MG/ML 700 MG in SODIUM CHL 0.9% 250 ML IV SCH ×2 (10:55→19:18)
[2022-02-02] MEDS: Juven Fruit Punch Powder PACKET 28.8gm PO SCH ×2 (10:56→17:58)
[2022-02-02 12:40] VITALS: BP 101/63
[2022-02-02 16:49] VITALS: BP 129/74
[2022-02-02] MEDS: HYDROcodone-ACET 5/325MG TAB PO PRN (17:58)
[2022-02-02] MEDS: ATORVASTATIN 20 MG TAB PO SCH (21:12)
[2022-02-02 22:00] VITALS: BP 109/61
[2022-02-02] MEDS: ALBUTEROL SULF 2.5 MG/0.5ML(0.5%) NEB SOLN NEB PRN (23:08)
[2022-02-03] MEDS: HYDROcodone-ACET 5/325MG TAB PO PRN ×2 (01:59→15:12)
[2022-02-03] MEDS: PIPERACILLIN-TAZOB 3.375GM 100 ML IV SCH ×4 (01:59→21:19)
[2022-02-03] MEDS: ACYCLOVIR SOD 50MG/ML 700 MG in SODIUM CHL 0.9% 250 ML IV SCH ×4 (02:02→21:01)
[2022-02-03] MEDS: VANCOMYCIN 750mg/250ml 250 ML IV SCH (04:00)
[2022-02-03] MEDS: MORPHINE SULFATE INJECTION 2 MG/ML SYRG IV PRN (04:58)
[2022-02-03 05:00] VITALS: BP 117/61
[2022-02-03] MEDS: SUCRALFATE 1 GM/10 ML ORAL SUSP PO SCH ×4 (06:00→22:00)
[2022-02-03] MEDS: IPRATROPIUM BROM 0.5 MG/2.5ML INH SOL NEB SCH ×3 (06:18→23:07)
[2022-02-03] MEDS: BUDESONIDE (INHALATION) 0.5 MG/2 ML NEB NEB SCH ×2 (06:18→23:06)
[2022-02-03 07:01] LABS: Basophils # (auto) 0 10 ^3/uL (0-0.2); Eosinophils # (auto) 0.2 10 ^3/uL (0-0.8); Mean Corpuscular Volume 82.2 fL (80.0-100.0); Monocytes # (auto) 0.6 10 ^3/uL (0-1.3); Neutrophils # (auto) 8.4 10 ^3/uL (1.6-8.6)
[2022-02-03 07:04] LABS: Basophils % (auto) 0.4 % (0.0-2.0); Eosinophils % (auto) 2.2 % (0.0-7.0); Hematocrit 24.5 % (41.0-53.0); Hemoglobin 8.7 g/dL (13.5-17.5); Lymphocytes # (auto) 2.1 10 ^3/uL (0.4-5.4); Lymphocytes % (auto) 18.4 % (10.0-50.0); Mean Corpuscular Hemoglobin 29.2 pg (28.0-32.0); Mean Corpuscular Hgb Conc. 35.6 g/dL (32.0-36.0); Monocytes % (auto) 4.9 % (0.0-12.0); Neutrophils % (auto) 74.1 % (37.0-80.0); Red Blood Cells 2.98 10^6/uL (4.5-5.90); Red Cell Distribution Width 15.8 % (11.8-14.3); White Blood Cell 11.4 10^3/uL (4.4-10.8)
[2022-02-03 07:12] LABS: Albumin 2.2 g/dL (3.4-5.0); Calcium 8.7 mg/dL (8.5-10.1); Potassium 3.2 mmol/L (3.5-5.1)
[2022-02-03 07:17] LABS: BUN/Creatinine Ratio 27.2; Bilirubin, Total 0.4 mg/dL (0.2-1.0); Total Protein 6.4 g/dL (6.4-8.2)
[2022-02-03 07:32] VITALS: BP 121/79
[2022-02-03] MEDS: FERROUS SULFATE 325mg EC TAB PO SCH ×3 (08:27→16:35)
[2022-02-03] MEDS: Juven Fruit Punch Powder PACKET 28.8gm PO SCH ×2 (08:27→16:35)
[2022-02-03] MEDS: ENOXAPARIN SOD 40 MG/0.4 ML SYRINGE SC SCH (10:24)
[2022-02-03] MEDS: PANTOPRAZOLE 40 MG/10 ML VIAL INJ IV SCH (10:24)
[2022-02-03] MEDS: CHOLECALCIFEROL (VITD3) 2,000 UNIT CAP/TAB PO SCH (10:24)
[2022-02-03] MEDS: ASPirin 81 mg TAB PO SCH (10:25)
[2022-02-03] MEDS: FOLIC ACID 1 MG TAB PO SCH (10:25)
[2022-02-03] MEDS: MUPIROCIN 2% OINT 15gm or 22gm EACHNOSTRI SCH ×2 (10:25→22:00)
[2022-02-03] MEDS: MULTIPLE VITAMINS W/ MINERALS TAB PO SCH (10:25)
[2022-02-03] MEDS: CYANOCOBALAMIN 500 MCG TAB PO SCH (10:25)
[2022-02-03] MEDS: THIAMINE HCL 100 MG TAB PO SCH (10:25)
[2022-02-03] MEDS ORDERED: POTASSIUM CHLORIDE 40 MEQ in SOD CHL 0.45% 1,000 ML IV SCH (10:30)
[2022-02-03] MEDS ORDERED: POTASSIUM CHL 20 Meq TABLET PO ONE (11:00)
[2022-02-03 11:35] VITALS: BP 111/64
[2022-02-03] MEDS ORDERED: LORazepam 0.5 MG TAB PO PRN (15:00)
[2022-02-03] MEDS ORDERED: TEMAZEPAM 15 MG CAP PO PRN (15:30)
[2022-02-03 16:14] VITALS: BP 103/72
[2022-02-03] MEDS: HYDROmorphone HCL 2 MG/ML VL IV PRN (18:47)
[2022-02-03 22:00] VITALS: BP 102/64
[2022-02-03] MEDS: MORPHINE SULF 15mg ER tab PO SCH (22:00)
[2022-02-03] MEDS: ATORVASTATIN 20 MG TAB PO SCH (22:00)
[2022-02-03] MEDS: PREGABALIN CAPSULE 75 MG CAP PO SCH (22:00)
[2022-02-03] MEDS: ALBUTEROL SULF 2.5 MG/0.5ML(0.5%) NEB SOLN NEB PRN (23:06)
[2022-02-04] MEDS: HYDROmorphone HCL 2 MG/ML VL IV PRN (01:37)
[2022-02-04] MEDS: PIPERACILLIN-TAZOB 3.375GM 100 ML IV SCH ×2 (03:00→09:34)
[2022-02-04] MEDS: ACYCLOVIR SOD 50MG/ML 700 MG in SODIUM CHL 0.9% 250 ML IV SCH ×2 (04:00→12:16)
[2022-02-04] MEDS ORDERED: VANCOMYCIN 1GM/250ML 250 ML IV SCH (04:00)
[2022-02-04 05:00] VITALS: BP 129/88
[2022-02-04] MEDS: PREGABALIN CAPSULE 75 MG CAP PO SCH (06:00)
[2022-02-04] MEDS: MORPHINE SULF 15mg ER tab PO SCH ×2 (06:33→13:59)
[2022-02-04] MEDS: BUDESONIDE (INHALATION) 0.5 MG/2 ML NEB NEB SCH (06:46)
[2022-02-04] MEDS: IPRATROPIUM BROM 0.5 MG/2.5ML INH SOL NEB SCH ×2 (06:46→14:02)
[2022-02-04 06:57] LABS: Calcium 8.4 mg/dL (8.5-10.1); Magnesium 2.3 mg/dL (1.6-2.6); Potassium 3.6 mmol/L (3.5-5.1)
[2022-02-04 06:58] LABS: BUN/Creatinine Ratio 18.6
[2022-02-04] MEDS: SUCRALFATE 1 GM/10 ML ORAL SUSP PO SCH ×2 (07:09→12:15)
[2022-02-04 08:00] VITALS: BP 94/57
[2022-02-04] MEDS: FERROUS SULFATE 325mg EC TAB PO SCH ×2 (08:35→12:15)
[2022-02-04] MEDS: Juven Fruit Punch Powder PACKET 28.8gm PO SCH (08:37)
[2022-02-04 09:00] VITALS: BP 94/57
[2022-02-04] MEDS: ASPirin 81 mg TAB PO SCH (09:36)
[2022-02-04] MEDS: CHOLECALCIFEROL (VITD3) 2,000 UNIT CAP/TAB PO SCH (09:37)
[2022-02-04] MEDS: ENOXAPARIN SOD 40 MG/0.4 ML SYRINGE SC SCH (09:37)
[2022-02-04] MEDS: THIAMINE HCL 100 MG TAB PO SCH (09:37)
[2022-02-04] MEDS: MUPIROCIN 2% OINT 15gm or 22gm EACHNOSTRI SCH (09:38)
[2022-02-04] MEDS: CYANOCOBALAMIN 500 MCG TAB PO SCH (09:38)
[2022-02-04] MEDS: MULTIPLE VITAMINS W/ MINERALS TAB PO SCH (09:38)
[2022-02-04] MEDS ORDERED: PATIENTS OWN MEDICATION (Rosuvastatin Calcium 1 TAB) PO SCH (10:00)
[2022-02-04] MEDS ORDERED: Folic Acid 400 MCG TAB PO SCH (10:00)
[2022-02-04] MEDS ORDERED: FOLIC ACID 400 MCG PO SCH (10:00)
[2022-02-04] MEDS ORDERED: ACYC-161 PO (11:06)
[2022-02-04] MEDS ORDERED: LINE1TAB6 PO (11:06)
[2022-02-04 13:00] VITALS: BP 100/65
[2022-02-04 17:00] VITALS: BP 107/71
== END 2022-02-04 18:45 | DRG 853 ==
LOC: EDBD 07:45 → ER 07:45 → TELE 15:42 → TELE-WESTW 19:00 → WEST WING 02-02 13:35
PROVIDERS: ADMIT Hospitalist; ATTEND Hospitalist
PROC: 04FD3ZZ Fragmentation of Left Common Iliac Artery, Percutaneous Approach (ICD-10-PCS; 2022-01-28)
PROC: 04FC3ZZ Fragmentation of Right Common Iliac Artery, Percutaneous Approach (ICD-10-PCS; 2022-01-28)
PROC: 047D3EZ Dilation of Left Common Iliac Artery with Two Intraluminal Devices, Percutaneous Approach (ICD-10-PCS; 2022-01-28)
PROC: 047C3EZ Dilation of Right Common Iliac Artery with Two Intraluminal Devices, Percutaneous Approach (ICD-10-PCS; 2022-01-28)
PROC: B44HZZ3 Ultrasonography of Bilateral Lower Extremity Arteries, Intravascular (ICD-10-PCS; 2022-01-28)
PROC: B41GYZZ Fluoroscopy of Left Lower Extremity Arteries using Other Contrast (ICD-10-PCS; 2022-01-28)
PROC: B41FYZZ Fluoroscopy of Right Lower Extremity Arteries using Other Contrast (ICD-10-PCS; 2022-01-28)
PROC: 0Y6Y0Z0 Detachment at Left 5th Toe, Complete, Open Approach (ICD-10-PCS; principal; 2022-02-02 07:29)
DX: A41.9 Sepsis, unspecified organism (principal); N18.6 End stage renal disease; G92.8 Other toxic encephalopathy; I96 Gangrene, not elsewhere classified; E44.0 Moderate protein-calorie malnutrition; F10.239 Alcohol dependence with withdrawal, unspecified; L03.116 Cellulitis of left lower limb; I12.0 Hypertensive chronic kidney disease with stage 5 chronic kidney disease or end stage renal disease; N17.9 Acute kidney failure, unspecified; L89.159 Pressure ulcer of sacral region, unspecified stage; N49.2 Inflammatory disorders of scrotum; I25.10 Atherosclerotic heart disease of native coronary artery without angina pectoris; K21.9 Gastro-esophageal reflux disease without esophagitis; D63.1 Anemia in chronic kidney disease; E78.5 Hyperlipidemia, unspecified; E83.52 Hypercalcemia; J44.9 Chronic obstructive pulmonary disease, unspecified; M20.41 Other hammer toe(s) (acquired), right foot; M20.42 Other hammer toe(s) (acquired), left foot; A60.02 Herpesviral infection of other male genital organs; B02.9 Zoster without complications; F03.90 Unspecified dementia, unspecified severity, without behavioral disturbance, psychotic disturbance, mood disturbance, and anxiety; F12.90 Cannabis use, unspecified, uncomplicated; F17.210 Nicotine dependence, cigarettes, uncomplicated; F41.9 Anxiety disorder, unspecified; R65.20 Severe sepsis without septic shock; G62.9 Polyneuropathy, unspecified; Z20.822 Contact with and (suspected) exposure to COVID-19; R33.9 Retention of urine, unspecified; B95.1 Streptococcus, group B, as the cause of diseases classified elsewhere; B96.5 Pseudomonas (aeruginosa) (mallei) (pseudomallei) as the cause of diseases classified elsewhere; B95.62 Methicillin resistant Staphylococcus aureus infection as the cause of diseases classified elsewhere; G47.00 Insomnia, unspecified; E87.6 Hypokalemia; Z86.14 Personal history of Methicillin resistant Staphylococcus aureus infection; Z99.3 Dependence on wheelchair; Z78.1 Physical restraint status; Z79.82 Long term (current) use of aspirin; Z79.899 Other long term (current) drug therapy; Z82.49 Family history of ischemic heart disease and other diseases of the circulatory system; Z68.25 Body mass index [BMI] 25.0-25.9, adult
CPT/HCPCS: 36415; 36600; 37221; 37223; 37252; 70450; 70551; 71045; 73630; 73718; 75716; 76775; 76870; 80048; 80053; 80061; 80202; 80307; 81001; 82140; 82306; 82550; 82565; 82570; 82728; 82805; 83036; 83605; 83615; 83690; 83735; 83880; 83970; 84100; 84300; 84443; 84484; 84550; 85025; 85379; 85610; 85652; 85730; 86141; 86592; 86850; 86900; 86901; 87040; 87070; 87075; 87077; 87081; 87086; 87088; 87186; 87205; 93005; 93306; 93925; 93970; 94640; 96361; 96365; 96372; 96375; 99152; 99153; C9113; G0378; J0330; J0690; J0696; J1100; J2001; J2250; J2405; J2543; J2704; J3489; Q9967

== ENCOUNTER 2022-06-01 08:49 | Day surgery (SDC) | payer MEDICARE, MEDICAID ==
[2022-05-31 14:48] LABS: Basophils # (auto) 0.1 10 ^3/uL (0-0.2); Basophils % (auto) 0.5 % (0.0-2.0); Eosinophils # (auto) 0.4 10 ^3/uL (0-0.8); Eosinophils % (auto) 4.3 % (0.0-7.0); Hematocrit 43.5 % (41.0-53.0); Hemoglobin 14.6 g/dL (13.5-17.5); Lymphocytes # (auto) 1.7 10 ^3/uL (0.4-5.4); Lymphocytes % (auto) 16.3 % (10.0-50.0); Mean Corpuscular Hemoglobin 30.7 pg (28.0-32.0); Mean Corpuscular Hgb Conc. 33.6 g/dL (32.0-36.0); Mean Corpuscular Volume 91.4 fL (80.0-100.0); Monocytes # (auto) 0.4 10 ^3/uL (0-1.3); Monocytes % (auto) 4.3 % (0.0-12.0); Neutrophils # (auto) 7.6 10 ^3/uL (1.6-8.6); Neutrophils % (auto) 74.6 % (37.0-80.0); Nucleated Red Blood Cells % 0.1 %; Red Blood Cells 4.76 10^6/uL (4.5-5.90); Red Cell Distribution Width 14.5 % (11.8-14.3); White Blood Cell 10.1 10^3/uL (4.4-10.8)
[2022-05-31 14:59] LABS: INR 0.92 (0.9-1.15); Partial Thromboplastin Time 26.4 sec (24.6-33.4)
[2022-05-31 15:25] LABS: Albumin 4.1 g/dL (3.4-5.0); Calcium 9.2 mg/dL (8.5-10.1); Potassium 4.3 mmol/L (3.5-5.1)
[2022-05-31 15:27] LABS: BUN/Creatinine Ratio 15.4
[2022-05-31 15:30] LABS: Bilirubin, Total 0.6 mg/dL (0.2-1.0); Total Protein 7.7 g/dL (6.4-8.2)
[~2022-06-01] VITALS: Ht 177.8 cm; Wt 81.6 kg
[~2022-06-01 08:49] MED LIST changes: +ACET-1156 PO; +ACYC-161 PO; +ALBU108A5 IN; +ASCO500T11 PO; +FAMO20TA10 PO; +FOLI1TAB6 PO; +FURO1TAB33 PO; +HYDR-4798 PO; +HYDR25TA87 PO; +IPRIH INH; +LINE1TAB6 PO; +LORA0.5T20 PO; +MET25T PO; +MORP10CA10 PO; +PREG75CA PO; +ROSU20TA14 PO; +THIA100T5 PO
[2022-06-01] MEDS ORDERED: ceFAZolin 1GM/50ML 100 ML IV ONE (10:13)
[2022-06-01] MEDS ORDERED: ceFAZolin 1GM/50ML 50 ML IV ONE (11:24)
[2022-06-01] MEDS ORDERED: ceFAZolin 1GM VL ONE (12:33)
[2022-06-01] MEDS ORDERED: ROPIVACAINE 0.5% (5MG/ML) 20ML AMPULE IJ ONE (12:33)
[2022-06-01] MEDS ORDERED: BACITRACIN TOP OINT 1 UD PKG TOP ONE (12:33)
[2022-06-01] MEDS ORDERED: fentaNYL CITRATE 100 MCG/2 ML VL ONE (12:47)
[2022-06-01] MEDS ORDERED: MIDAZOLAM HCL 2MG/2ML 2ml VIAL (1mg/ml) ONE (12:47)
[2022-06-01] MEDS ORDERED: ONDANSETRON HCL 4 MG/2 ML VIAL IV PRN (13:30)
[2022-06-01] MEDS ORDERED: HYDROmorphone HCL 2 MG/ML VL/or syr IV PRN (13:30)
[2022-06-01] MEDS ORDERED: LIDOCAINE 2% (LOCAL ANESTH.) PF 5ml SDV ONE (13:49)
[2022-06-01] MEDS ORDERED: PROPOFOL 10 MG/ML 20 ML IV ONE (13:49)
[2022-06-01] MEDS ORDERED: ONDANSETRON HCL 4 MG/2 ML VIAL ONE (13:49)
[2022-06-01] MEDS ORDERED: MORPHINE SULFATE INJ 2 MG/ml SYRG ONE (14:15)
[2022-06-01] MEDS ORDERED: MORPHINE SULFATE INJ 2 MG/ml SYRG IV PRN (14:15)
[2022-06-01 14:40] VITALS: BP 144/70
== END 2022-06-01 16:00 | disposition home or self-care (01) ==
LOC: SUR 08:49
PROVIDERS: ATTEND Podiatrist Foot & Ankle Surgery
DX: E11.621 Type 2 diabetes mellitus with foot ulcer (principal); L89.893 Pressure ulcer of other site, stage 3; I10 Essential (primary) hypertension; G47.00 Insomnia, unspecified; F17.200 Nicotine dependence, unspecified, uncomplicated; J43.9 Emphysema, unspecified; Z90.89 Acquired absence of other organs; Z95.5 Presence of coronary angioplasty implant and graft; Z20.822 Contact with and (suspected) exposure to COVID-19; Z82.49 Family history of ischemic heart disease and other diseases of the circulatory system; Z87.738 Personal history of other specified (corrected) congenital malformations of digestive system; Z83.1 Family history of other infectious and parasitic diseases
CPT/HCPCS: 11042; 36415; 80053; 85025; 85610; 85730; 87070; 87075; 87077; 87186; 87205; C1887; J0690; J2001; J2250; J2270; J2405; J2704; J2795; J3010; J7030; U0003

== ENCOUNTER 2023-03-02 10:06 | Inpatient (IN) | payer MEDICARE, MEDICAID ==
[~2023-03-02] VITALS: Ht 177.8 cm; Wt 84.3 kg
[2023-03-02] MEDS ORDERED: SODIUM CHLORIDE 0.9% 500 ML IV ONE (10:30)
[2023-03-02] MEDS: ONDANSETRON HCL 4 MG/2 ML VIAL IV ONE ×2 (10:30→15:45)
[2023-03-02] MEDS ORDERED: MORPHINE SULFATE INJ 2 MG/ml SYRG IV ONE (10:30)
[2023-03-02 11:07] LABS: Basophils # (auto) 0.1 10 ^3/uL (0-0.2); Basophils % (auto) 0.6 % (0.0-2.0); Eosinophils # (auto) 0.5 10 ^3/uL (0-0.8); Eosinophils % (auto) 4.8 % (0.0-7.0); Hematocrit 40.4 % (41.0-53.0); Hemoglobin 14.1 g/dL (13.5-17.5); Lymphocytes # (auto) 2.2 10 ^3/uL (0.4-5.4); Lymphocytes % (auto) 19.2 % (10.0-50.0); Mean Corpuscular Hemoglobin 31.2 pg (28.0-32.0); Mean Corpuscular Volume 89.3 fL (80.0-100.0); Monocytes # (auto) 0.6 10 ^3/uL (0-1.3); Monocytes % (auto) 5.2 % (0.0-12.0); Neutrophils % (auto) 70.2 % (37.0-80.0); Nucleated Red Blood Cells % 0.1 %; Red Blood Cells 4.53 10^6/uL (4.5-5.90); Red Cell Distribution Width 13.8 % (11.8-14.3); White Blood Cell 11.4 10^3/uL (4.4-10.8)
[2023-03-02 11:15] LABS: INR 0.92 (0.9-1.15); Partial Thromboplastin Time 31.4 sec (24.6-33.4)
[2023-03-02 11:23] LABS: Albumin 3.5 g/dL (3.4-5.0); Calcium 8.9 mg/dL (8.5-10.1); Potassium 4.2 mmol/L (3.5-5.1)
[2023-03-02 11:24] LABS: BUN/Creatinine Ratio 24.7 (10.0-20.0)
[2023-03-02 11:27] LABS: Bilirubin, Total 0.7 mg/dL (0.2-1.0)
[2023-03-02] MEDS ORDERED: CLINDAMYCIN 600MG IV 50 ML IV ONE (13:00)
[2023-03-02] MEDS ORDERED: ALBUTEROL SULF 2.5 MG/0.5ML(0.5%) NEB SOLN NEB PRN (13:30)
[2023-03-02] MEDS ORDERED: IPRATROPIUM BROM 0.5 MG/2.5ML INH SOL NEB PRN (13:30)
[2023-03-02] MEDS ORDERED: ONDANSETRON HCL 4 MG/2 ML VIAL IV PRN (13:30)
[2023-03-02] MEDS ORDERED: DOCUSATE SOD 100 MG CAP PO PRN (13:30)
[2023-03-02] MEDS: PREGABALIN CAPSULE 75 MG CAP PO SCH ×2 (14:00→22:00)
[2023-03-02 15:12] VITALS: BP 135/67
[2023-03-02] MEDS ORDERED: CLINDAMYCIN HCL 150 MG CAP PO ONE ×3 (17:45→18:15)
[2023-03-02] MEDS: SODIUM CHLORIDE 0.9% 1,000 ML IV SCH (18:09)
[2023-03-02] MEDS ORDERED: METO25TA5 PO (18:28)
[2023-03-02] MEDS ORDERED: PERCOT PO (18:38)
[2023-03-02] MEDS ORDERED: METH500T22 PO (18:39)
[2023-03-02] MEDS ORDERED: ONDA-144 PO (18:40)
[2023-03-02] MEDS ORDERED: MOMLQ PO (18:41)
[2023-03-02] MEDS ORDERED: POTA-264 PO (20:38)
[2023-03-02] MEDS ORDERED: FER325T PO (20:38)
[2023-03-02 22:00] VITALS: BP 148/76
[2023-03-02] MEDS: LORazepam 0.5 MG TAB PO PRN (22:22)
[2023-03-02] MEDS: FAMOTIDINE 20 MG TAB PO SCH (22:23)
[2023-03-02] MEDS: METOPROLOL TARTRATE 25 MG TAB PO SCH (22:24)
[2023-03-02] MEDS: MORPHINE SULFATE INJ 2 MG/ml SYRG IV PRN (23:04)
[2023-03-03] VITALS (9 sets, daily range): BP systolic 115–178; BP diastolic 55–81
[2023-03-03] MEDS: SODIUM CHLORIDE 0.9% 1,000 ML IV SCH ×4 (02:33→22:50)
[2023-03-03] MEDS: MORPHINE SULFATE INJ 2 MG/ml SYRG IV PRN ×2 (03:23→15:24)
[2023-03-03] MEDS: PREGABALIN CAPSULE 75 MG CAP PO SCH (05:43)
[2023-03-03 06:30] LABS: Basophils # (auto) 0.1 10 ^3/uL (0-0.2); Basophils % (auto) 0.8 % (0.0-2.0); Eosinophils # (auto) 0.5 10 ^3/uL (0-0.8); Eosinophils % (auto) 4.1 % (0.0-7.0); Hematocrit 41.7 % (41.0-53.0); Hemoglobin 14.6 g/dL (13.5-17.5); Lymphocytes # (auto) 2.4 10 ^3/uL (0.4-5.4); Lymphocytes % (auto) 20.8 % (10.0-50.0); Mean Corpuscular Hemoglobin 30.9 pg (28.0-32.0); Mean Corpuscular Hgb Conc. 35.1 g/dL (32.0-36.0); Mean Corpuscular Volume 88.2 fL (80.0-100.0); Monocytes # (auto) 0.6 10 ^3/uL (0-1.3); Neutrophils # (auto) 8.2 10 ^3/uL (1.6-8.6); Neutrophils % (auto) 69.3 % (37.0-80.0); Nucleated Red Blood Cells % 0.2 %; Red Blood Cells 4.73 10^6/uL (4.5-5.90); Red Cell Distribution Width 13.8 % (11.8-14.3); White Blood Cell 11.8 10^3/uL (4.4-10.8)
[2023-03-03 06:49] LABS: Calcium 9.1 mg/dL (8.5-10.1)
[2023-03-03 06:54] LABS: Albumin 3.4 g/dL (3.4-5.0); BUN/Creatinine Ratio 20.3 (10.0-20.0); Bilirubin, Total 0.5 mg/dL (0.2-1.0); Total Protein 6.9 g/dL (6.4-8.2)
[2023-03-03] MEDS: LORazepam 0.5 MG TAB PO PRN ×2 (09:36→20:49)
[2023-03-03] MEDS: MULTIPLE VITAMIN TAB PO SCH (10:00)
[2023-03-03] MEDS: ASCORBIC ACID 500 MG TAB PO SCH (10:00)
[2023-03-03] MEDS: THIAMINE HCL 100 MG TAB PO SCH (10:00)
[2023-03-03] MEDS: ASPirin-EC 81 mg tab PO SCH (10:00)
[2023-03-03] MEDS: ATORVASTATIN 20 MG TAB PO SCH (10:00)
[2023-03-03] MEDS: ENOXAPARIN SOD 40 MG/0.4 ML SYRINGE SC SCH (10:00)
[2023-03-03] MEDS: FUROSEMIDE 20 MG TAB PO SCH (10:00)
[2023-03-03] MEDS: FOLIC ACID 1 MG TAB PO SCH (10:00)
[2023-03-03] MEDS: FAMOTIDINE 20 MG TAB PO SCH ×2 (10:00→22:21)
[2023-03-03] MEDS: PANTOPRAZOLE 40 MG TAB PO SCH (10:00)
[2023-03-03] MEDS ORDERED: fentaNYL CITRATE 100 MCG/2 ML VL ONE ×2 (10:41→11:14)
[2023-03-03] MEDS ORDERED: MIDAZOLAM HCL 2MG/2ML 2ml VIAL (1mg/ml) ONE ×2 (10:41→11:14)
[2023-03-03] MEDS ORDERED: ANGIOMAX 250 MG VIAL IV ONE (10:41)
[2023-03-03] MEDS ORDERED: IODIXANOL 320MG/ML 100ML BTL IV ONE ×2 (10:42→10:44)
[2023-03-03] MEDS ORDERED: SODIUM CHL 0.9% 0 ML ONE (10:42)
[2023-03-03] MEDS ORDERED: LIDOCAINE 2%HCL (LOCAL ANESTH.) INJ 10ml MDV ONE (10:42)
[2023-03-03] MEDS ORDERED: LIDOCAINE 2%HCL (LOCAL ANESTH.) INJ 20ML MDV ONE (10:43)
[2023-03-03] MEDS: LISINOPRIL 20 MG TAB PO SCH (13:20)
[2023-03-03] MEDS: METOPROLOL TARTRATE 25 MG TAB PO SCH ×2 (13:21→22:21)
[2023-03-03] MEDS: OXYCODONE W/ ACETAMINOPHEN 5/325MG TABLET PO PRN (17:42)
[2023-03-03] MEDS: METHOCARBAMOL 500 MG TAB PO SCH ×3 (17:58→22:12)
[2023-03-03] MEDS ORDERED: TEMAZEPAM 15 MG CAP PO ONE (22:00)
[2023-03-03] MEDS: MORPHINE SULF 30 mg ER tab PO SCH (22:12)
[2023-03-04 05:00] VITALS: BP 102/67
[2023-03-04 06:20] LABS: Basophils # (auto) 0 10 ^3/uL (0-0.2); Basophils % (auto) 0.4 % (0.0-2.0); Eosinophils # (auto) 0.4 10 ^3/uL (0-0.8); Eosinophils % (auto) 3.3 % (0.0-7.0); Hematocrit 39.5 % (41.0-53.0); Hemoglobin 13.8 g/dL (13.5-17.5); Lymphocytes # (auto) 2.9 10 ^3/uL (0.4-5.4); Lymphocytes % (auto) 23.8 % (10.0-50.0); Mean Corpuscular Hemoglobin 31.3 pg (28.0-32.0); Mean Corpuscular Hgb Conc. 34.9 g/dL (32.0-36.0); Mean Corpuscular Volume 89.6 fL (80.0-100.0); Monocytes # (auto) 0.7 10 ^3/uL (0-1.3); Neutrophils % (auto) 66.5 % (37.0-80.0); Nucleated Red Blood Cells % 0.2 %; Red Cell Distribution Width 13.5 % (11.8-14.3)
[2023-03-04] MEDS: METHOCARBAMOL 500 MG TAB PO SCH ×4 (06:26→22:00)
[2023-03-04 06:32] LABS: Albumin 3.3 g/dL (3.4-5.0); Calcium 9.2 mg/dL (8.5-10.1); Potassium 3.6 mmol/L (3.5-5.1)
[2023-03-04 06:35] LABS: Bilirubin, Total 0.7 mg/dL (0.2-1.0); Total Protein 6.9 g/dL (6.4-8.2)
[2023-03-04] MEDS: SODIUM CHLORIDE 0.9% 1,000 ML IV SCH ×3 (07:10→23:50)
[2023-03-04 09:00] VITALS: BP 124/52
[2023-03-04] MEDS: LORazepam 0.5 MG TAB PO PRN (09:33)
[2023-03-04] MEDS: FOLIC ACID 1 MG TAB PO SCH (09:33)
[2023-03-04] MEDS: ASPirin-EC 81 mg tab PO SCH (09:33)
[2023-03-04] MEDS: MORPHINE SULF 30 mg ER tab PO SCH ×2 (09:33→21:32)
[2023-03-04] MEDS: MULTIPLE VITAMIN TAB PO SCH (09:33)
[2023-03-04] MEDS: ENOXAPARIN SOD 40 MG/0.4 ML SYRINGE SC SCH (09:34)
[2023-03-04] MEDS: ASCORBIC ACID 500 MG TAB PO SCH (09:34)
[2023-03-04] MEDS: ATORVASTATIN 20 MG TAB PO SCH (09:34)
[2023-03-04] MEDS: THIAMINE HCL 100 MG TAB PO SCH (09:34)
[2023-03-04] MEDS: FUROSEMIDE 20 MG TAB PO SCH (09:34)
[2023-03-04] MEDS: PANTOPRAZOLE 40 MG TAB PO SCH (09:35)
[2023-03-04] MEDS: LISINOPRIL 20 MG TAB PO SCH (09:35)
[2023-03-04] MEDS: METOPROLOL TARTRATE 25 MG TAB PO SCH ×2 (09:35→21:37)
[2023-03-04] MEDS: FAMOTIDINE 20 MG TAB PO SCH ×2 (09:35→21:33)
[2023-03-04] MEDS: OXYCODONE W/ ACETAMINOPHEN 5/325MG TABLET PO PRN ×2 (12:41→19:34)
[2023-03-04 13:00] VITALS: BP 125/60
[2023-03-04 16:52] VITALS: BP 126/88
[2023-03-04 22:00] VITALS: BP 121/65
[2023-03-04] MEDS ORDERED: TEMAZEPAM 15 MG CAP PO ONE (23:15)
[2023-03-05 05:00] VITALS: BP 100/61
[2023-03-05] MEDS: METHOCARBAMOL 500 MG TAB PO SCH ×4 (06:06→22:00)
[2023-03-05 07:15] VITALS: BP 100/61
[2023-03-05] MEDS: SODIUM CHLORIDE 0.9% 1,000 ML IV SCH ×2 (08:10→16:30)
[2023-03-05 08:47] VITALS: BP 113/76
[2023-03-05] MEDS: ENOXAPARIN SOD 40 MG/0.4 ML SYRINGE SC SCH (09:30)
[2023-03-05] MEDS: THIAMINE HCL 100 MG TAB PO SCH (09:30)
[2023-03-05] MEDS: METOPROLOL TARTRATE 25 MG TAB PO SCH ×2 (09:30→22:00)
[2023-03-05] MEDS: MORPHINE SULF 30 mg ER tab PO SCH ×2 (09:31→22:00)
[2023-03-05] MEDS: FOLIC ACID 1 MG TAB PO SCH (09:31)
[2023-03-05] MEDS: MULTIPLE VITAMIN TAB PO SCH (09:31)
[2023-03-05] MEDS: ASPirin-EC 81 mg tab PO SCH (09:31)
[2023-03-05] MEDS: ASCORBIC ACID 500 MG TAB PO SCH (09:31)
[2023-03-05] MEDS: FAMOTIDINE 20 MG TAB PO SCH ×2 (09:31→22:00)
[2023-03-05] MEDS: LORazepam 0.5 MG TAB PO PRN ×2 (09:44→23:29)
[2023-03-05] MEDS: ATORVASTATIN 20 MG TAB PO SCH (10:00)
[2023-03-05] MEDS: PANTOPRAZOLE 40 MG TAB PO SCH (10:00)
[2023-03-05] MEDS: FUROSEMIDE 20 MG TAB PO SCH (10:00)
[2023-03-05] MEDS: LISINOPRIL 20 MG TAB PO SCH (10:00)
[2023-03-05] MEDS: OXYCODONE W/ ACETAMINOPHEN 5/325MG TABLET PO PRN ×2 (12:27→18:45)
[2023-03-05 17:13] VITALS: BP 112/58
[2023-03-05 22:00] VITALS: BP 104/83
[2023-03-06] VITALS (8 sets, daily range): BP systolic 102–133; BP diastolic 48–85
[2023-03-06] MEDS: SODIUM CHLORIDE 0.9% 1,000 ML IV SCH (00:50)
[2023-03-06] MEDS: METHOCARBAMOL 500 MG TAB PO SCH (06:00)
[2023-03-06 07:05] LABS: Potassium 3.8 mmol/L (3.5-5.1)
[2023-03-06 07:09] LABS: Albumin 3.3 g/dL (3.4-5.0); BUN/Creatinine Ratio 26.3 (10.0-20.0)
[2023-03-06 07:12] LABS: Bilirubin, Total 0.6 mg/dL (0.2-1.0); Total Protein 6.9 g/dL (6.4-8.2)
[2023-03-06 07:33] LABS: Basophils # (auto) 0 10 ^3/uL (0-0.2); Basophils % (auto) 0.5 % (0.0-2.0); Eosinophils # (auto) 0.5 10 ^3/uL (0-0.8); Eosinophils % (auto) 4.9 % (0.0-7.0); Hematocrit 38.7 % (41.0-53.0); Hemoglobin 13.5 g/dL (13.5-17.5); Lymphocytes # (auto) 2.8 10 ^3/uL (0.4-5.4); Lymphocytes % (auto) 27.9 % (10.0-50.0); Mean Corpuscular Hemoglobin 31.6 pg (28.0-32.0); Mean Corpuscular Hgb Conc. 34.9 g/dL (32.0-36.0); Mean Corpuscular Volume 90.7 fL (80.0-100.0); Monocytes # (auto) 0.6 10 ^3/uL (0-1.3); Monocytes % (auto) 6.2 % (0.0-12.0); Neutrophils # (auto) 6.2 10 ^3/uL (1.6-8.6); Neutrophils % (auto) 60.5 % (37.0-80.0); Nucleated Red Blood Cells % 0.1 %; Red Blood Cells 4.27 10^6/uL (4.5-5.90); Red Cell Distribution Width 13.9 % (11.8-14.3); White Blood Cell 10.2 10^3/uL (4.4-10.8)
[2023-03-06] MEDS: PANTOPRAZOLE 40 MG TAB PO SCH (09:20)
[2023-03-06] MEDS: ASPirin-EC 81 mg tab PO SCH (09:20)
[2023-03-06] MEDS: MORPHINE SULF 30 mg ER tab PO SCH (09:20)
[2023-03-06] MEDS: METOPROLOL TARTRATE 25 MG TAB PO SCH (09:21)
[2023-03-06] MEDS: FAMOTIDINE 20 MG TAB PO SCH (10:00)
[2023-03-06] MEDS: LISINOPRIL 20 MG TAB PO SCH (10:00)
[2023-03-06] MEDS: MULTIPLE VITAMIN TAB PO SCH (10:00)
[2023-03-06] MEDS: ATORVASTATIN 20 MG TAB PO SCH (10:00)
[2023-03-06] MEDS ORDERED: MORPHINE SULFATE INJ 2 MG/ml SYRG IV PRN (10:00)
[2023-03-06] MEDS ORDERED: SODIUM CHLORIDE 0.9% 1,000 ML IV SCH (10:00)
[2023-03-06] MEDS: FOLIC ACID 1 MG TAB PO SCH (10:00)
[2023-03-06] MEDS ORDERED: LORazepam 0.5 MG TAB PO PRN (10:00)
[2023-03-06] MEDS: ENOXAPARIN SOD 40 MG/0.4 ML SYRINGE SC SCH (10:00)
[2023-03-06] MEDS ORDERED: IODIXANOL 320MG/ML 100ML BTL IV ONE (11:23)
[2023-03-06] MEDS ORDERED: LIDOCAINE 2%HCL (LOCAL ANESTH.) INJ 20ML MDV ONE (11:23)
[2023-03-06] MEDS ORDERED: ANGIOMAX 250 MG VIAL IV ONE (11:31)
[2023-03-06] MEDS ORDERED: SODIUM CHL 0.9% 50 ML ONE (11:31)
[2023-03-06] MEDS ORDERED: fentaNYL CITRATE 100 MCG/2 ML VL ONE ×2 (11:35→12:16)
[2023-03-06] MEDS ORDERED: MIDAZOLAM HCL 2MG/2ML 2ml VIAL (1mg/ml) ONE ×2 (11:35→12:13)
[2023-03-06] MEDS ORDERED: CLOPIDOGREL 300 MG TAB ONE (12:25)
[2023-03-06] MEDS ORDERED: METHOCARBAMOL 500 MG TAB PO SCH (14:00)
[2023-03-06 17:26] LABS: Urine Bacteria NONE SEEN /hpf (None Seen); Urine Blood Negative /uL (Negative); Urine Specific Gravity 1.038 (1.001-1.035); Urine WBC 6 /hpf (0 - 3)
[2023-03-07] MEDS ORDERED: CLOPIDOGREL BISULFATE 75 MG TAB PO SCH (10:00)
== END 2023-03-06 18:27 | DRG 253 ==
LOC: ER 10:06 → EDBD 10:06 → OVERFLOW 13:40 → CENTRAL 18:05
PROVIDERS: ADMIT Nurse Practitioner Family; ATTEND Internal Medicine
PROC: B41CYZZ Fluoroscopy of Pelvic Arteries using Other Contrast (ICD-10-PCS; 2023-03-03)
PROC: B41GYZZ Fluoroscopy of Left Lower Extremity Arteries using Other Contrast (ICD-10-PCS; 2023-03-03)
PROC: B41FYZZ Fluoroscopy of Right Lower Extremity Arteries using Other Contrast (ICD-10-PCS; 2023-03-03)
PROC: 047C3ZZ Dilation of Right Common Iliac Artery, Percutaneous Approach (ICD-10-PCS; principal; 2023-03-06)
PROC: 047H34Z Dilation of Right External Iliac Artery with Drug-eluting Intraluminal Device, Percutaneous Approach (ICD-10-PCS; 2023-03-06)
PROC: B41CYZZ Fluoroscopy of Pelvic Arteries using Other Contrast (ICD-10-PCS; 2023-03-06)
DX: I73.9 Peripheral vascular disease, unspecified (principal); I74.5 Embolism and thrombosis of iliac artery; D72.829 Elevated white blood cell count, unspecified; J44.9 Chronic obstructive pulmonary disease, unspecified; E78.5 Hyperlipidemia, unspecified; L08.9 Local infection of the skin and subcutaneous tissue, unspecified; F17.210 Nicotine dependence, cigarettes, uncomplicated; F41.9 Anxiety disorder, unspecified; G89.29 Other chronic pain; Z89.422 Acquired absence of other left toe(s); Z90.49 Acquired absence of other specified parts of digestive tract; Z90.89 Acquired absence of other organs; I10 Essential (primary) hypertension
CPT/HCPCS: 36415; 37221; 37222; 71045; 73700; 76937; 80053; 81001; 85025; 85610; 85652; 85730; 87081; 93005; 93306; 93925; 93970; 96361; 96374; G0378; J2001; J2250; J2405; Q9967